=== PATIENT | female | born 1945 | race Caucasian/White ===

== ENCOUNTER 2024-06-16 12:58 | Emergency (ER) | payer OTHER, SELFPAY ==
[2024-06-16 13:01] VITALS: BP 133/87
[2024-06-16 14:24] VITALS: BP 131/61; BMI 35.4
[2024-06-16 15:22] LABS: % Basophils 0.9 % (0-2); % Immature Granulocytes 0.4 % (0-0.5); % Monocytes 11.7 % (1.7-9.3); Absolute Basophils 0.1 10^3/uL (0-0.2); Absolute Eosinophils 0.2 10^3/uL (0-0.7); Absolute Lymphocytes 1.9 10^3/uL (1.2-3.4); Absolute Monocytes 0.9 10^3/uL (0.1-0.6); Absolute Neutrophils 4.9 10^3/uL (1.4-6.5); Hematocrit 36.9 % (37.0-47.0); Hemoglobin 12.9 g/dL (12.0-16.0); Mean Corpuscular Volume 94.4 fL (81.0-99.0); Mean Platelet Volume 10.1 fL (7.4-10.4); Nucleated Red Blood Cells % 0 %; Platelet Count 214 10^3/uL (130-400); Red Blood Cell Count 3.91 10^6/uL (4.20-5.40); Red Cell Dist. Width 12.2 % (11.5-14.5)
--- NOTE | 2024-06-16 15:36 | ED.GENMED ---
History of Present Illness
General
Chief Complaint: DVT/Possible Blood Clot
Time Seen by Provider: 06/16/24 15:03
History of Present Illness
History of Present Illness:
Patient is a 79-year-old woman with history of A-fib on Eliquis, hypertension, hyperlipidemia, insulin-dependent diabetes presented to the emergency department diarrhea and leg swelling. Patient states for the past month she has had countless
episodes of nonbloody diarrhea. She states that is very liquidy. Did travel to [place] but was having diarrhea when she did this. No antibiotics. She does have abdominal pain with her that has been ongoing for the past month. No nausea
or vomiting. No fevers or chills. She has been taking Pepto-Bismol so the stools have been black. She went to her primary care doctor today for this and fecal occult blood testing was negative. She was told to get stool studies done. Also
noticed some leg swelling so she was sent here for DVT rule out. Patient states that her leg does not seem more swollen. It is red from a prior sunburn. She denies any chest pain hemoptysis. Her calves have been tender intermittently if she has
been having severe muscle cramps from all the diarrhea. She does have history of edema requiring compression stockings
Past History
Past History
ED Past Medical History: Arrthythmia (Atrial fib), CVA, HTN, Hypercholesterolemia, IDDM and Other (Parkinson's disease)
ED Past Surgical History: (X 3), Gynecological (D&C X 3), Orthopedic (partial right knee replacement, Spinal fusion), Tonsilectomy (and adnoids) and Other
Social History
Tobacco: Former smoker
Alcohol: Occasional
Personal:
Living: with family
Employment: Retired
Phy Exam
Physical Exam
Physical Exam:
GENERAL: in no acute distress
HEENT: normocephalic, extraocular movements intact, moist oral mucosa
NECK: normal inspection
RESPIRATORY: no respiratory distress, clear to auscultation bilaterally
CARDIOVASCULAR: regular rate and rhythm
ABDOMEN/: soft, non-distended, epigastric and right upper quadrant tenderness no rebound or guarding
EXTREMITIES: non-tender, minimal edema bilaterally with left lower extremity with area of excoriation and some erythema that is not warm or tender
NEUROLOGIC: awake and alert, moves all extremities
SKIN: warm
Course
Orders/Labs/Results
Orders:
Orders
06/16/24 13:07
Periph Venous Lwr Ext Left US [US Periph Venous LOWER Ext LT] Urgent
Comment:
Reason For Exam: swelling and redness
06/16/24 15:04
STOOL [C difficile Antigen & Toxins] Urgent
PATRICIA Source: Feces/Stool
Specimen Description:
Stool Culture Urgent
PATRICIA Source: Feces/Stool
Specimen Description:
06/16/24 15:16
Basic Metabolic Panel Urgent
Complete Blood Count/With Diff Urgent
Direct Bilirubin Urgent
Comment: COMBINE/HEMOLYZED
06/16/24 15:36
CT Abd/pelvis W Iv Cont Urgent
Comment:
Reason For Exam: abdominal pain diarrhea
Abnormal Lab Results
06/16/24
15:16
RBC 3.91 L 10^6/uL
(4.20-5.40)
Hct 36.9 L %
(37.0-47.0)
MCH 33.0 H pg
(27.0-31.0)
Absolute Monos (auto) 0.9 H 10^3/uL
(0.1-0.6)
Monocytes % 11.7 H %
(1.7-9.3)
BUN 28 H mg/dl
(7-17)
Glucose 133 H mg/dl
(70-99)
06/16/24 15:16
06/16/24 15:16
Vital Signs
Initial and Last Documented VS:
Initial Vital Signs
Temp Pulse Resp BP Pulse Ox
97.6 F 72 20 133/87 96
06/16/24 13:01 06/16/24 13:01 06/16/24 13:01 06/16/24 13:01 06/16/24 13:01
Last Documented Vital Signs
Temp Pulse Resp BP Pulse Ox
97.6 F 63 16 134/65 100
06/16/24 13:01 06/16/24 16:57 06/16/24 16:57 06/16/24 16:57 06/16/24 16:57
MDM/Problems Addressed
Differential Diagnosis Includes:
Patient is a 79-year-old woman presenting to the emergency department diarrhea for the past month and leg swelling sent by her PCP for further evaluation. Vitals here are unremarkable and exam does show abdominal tenderness in the epigastric region
and right upper quadrant with an area of erythema to the left calf. Differential consists of viral versus bacterial illness versus gallbladder etiology versus liver etiology. Could be the onset of IBD though less likely as no family history. Will
check blood work CT scan and stool sample. Will check DVTs ultrasound
*Critical Care Note
Total Time (30-74mins, 75-104mins- exclusive of procedures): Not Applicable
Update Note
Update Note:
DVT study negative. Blood work unremarkable. CT scan without signs of colitis or biliary pathology. Patient was unable to give a stool sample. After shared decision making we will discharge patient home with PCP follow-up.
ED Attending Note
-
Portions of this chart may have been created with voice recognition software.� Occasional wrong word or��sound alike� substitutions may have occurred due to the inherent limitations of voice recognition software.
Discharge Plan
Departure
Patient Disposition: Home (Routine Discharge)
Date of Disposition: 06/16/24
Time of Disposition: 17:44
Patient with high blood pressure during this ER visit?: No
Discharge Problem:
Diarrhea
Instructions: Ambriz's Cyst (DC)
Prescriptions:
No Action
carbidopa-levodopa 1 EACH tablet extended release
1 ea PO DAILY
pramipexole [Mirapex] 0.5 MG tablet
0.5 mg PO TID
gabapentin 300 MG capsule
600 mg PO TID
carbidopa-levodopa 1 EACH tablet
1 ea PO TID
glipizide 5 MG tablet
5 mg PO . DIRECTED
cholecalciferol (vitamin D3) [Vitamin D3] 1,000 UNIT capsule
1,000 unit PO DAILY
rosuvastatin 10 MG tablet
10 mg PO DAILY
rasagiline 1 MG tablet
1 mg PO DAILY
insulin glargine [Lantus Solostar U-100 Insulin] 300 UNITS/3 ML insulin pen
60 units SC . DIRECTED
Eliquis 5 MG tablet
5 mg PO BID
Coenzyme Q-10
100 mg PO DAILY
lisinopril 20 MG tablet
40 mg PO DAILY 0RF
dofetilide 250 MCG capsule
250 mcg PO BID@1000,2200 Qty: 60 3RF
donepezil 10 mg Tablet
10 mg PO HS
irbesartan 150 mg Tablet
150 mg PO DAILY
carbidopa-levodopa 25-100 mg Tablet
1 tab PO TID
Trulicity 3 mg/0.5 mL Pen Injector
3 mg SC QWEEK
amlodipine 5 MG tablet
10 mg PO DAILY
Referrals:
Angela Brian MD [Family Provider] -
Activity Restrictions/Additional Instructions:
You were seen in the Emergency Department today for diarrhea and leg swelling. While you were here we performed blood work, which was reassuring.
We would like for you to follow up with your primary care physician for further evaluation. If you experience fever, worsening of your symptoms, or develop any other new or concerning symptoms, please return to the Emergency Department immediately.
Please see the attached sheet for additional information.
Interventions
Interventions:
*Risk Screen - Suicide Last Done: 06/16/24 14:24
*General Assessment Last Done: 06/16/24 14:24
*Neglect/Abuse Screening Last Done: 06/16/24 14:24
*ED COVID-19 Vaccine History Last Done: 06/16/24 14:24
ED- Cardiac Assessment Last Done: 06/16/24 13:48
ED- Pulmonary Assessment Last Done: 06/16/24 13:48
ED-Peripheral Vascular Assessment Last Done: 06/16/24 13:48
ED-Skin Assessment Last Done: 06/16/24 14:27
Discharge Date and Time
Print Language: TUVALUAN
[2024-06-16 15:42] LABS: Blood Urea Nitrogen 28 mg/dl (7-17); Calcium 9.3 mg/dl (8.4-10.2); Carbon Dioxide 24 mmol/L (22-30); Chloride 105 mmol/L (98-107); Direct Bilirubin 0.3 mg/dl (0.0-0.4); Estimated Creatinine Clearance 53 ml/min; Glucose 133 mg/dl (70-99); Sodium 139 mmol/L (135-145)
[2024-06-16 16:57] VITALS: BP 134/65
[2024-06-16 17:51] VITALS: BP 140/67
== END 2024-06-16 18:06 | disposition home or self-care (01) ==
LOC: EMR 12:58
PROVIDERS: EMERGENCY PHYSICIAN Student in an Organized Health Care Education/Training Program; FAMILY PHYSICIAN Internal Medicine
DX: R19.7 Diarrhea, unspecified (principal); R22.42 Localized swelling, mass and lump, left lower limb; I48.91 Unspecified atrial fibrillation; I10 Essential (primary) hypertension; E78.00 Pure hypercholesterolemia, unspecified; E11.9 Type 2 diabetes mellitus without complications; G20.A1 Parkinson's disease without dyskinesia, without mention of fluctuations; I25.10 Atherosclerotic heart disease of native coronary artery without angina pectoris; Z79.01 Long term (current) use of anticoagulants; Z79.4 Long term (current) use of insulin; Z86.73 Personal history of transient ischemic attack (TIA), and cerebral infarction without residual deficits; Z87.891 Personal history of nicotine dependence; Z96.651 Presence of right artificial knee joint; Z98.1 Arthrodesis status
CPT/HCPCS: 99284; 74177; 80048; 82248; 85025; 93971; Q9967

== ENCOUNTER 2024-12-07 12:15 | Inpatient (IN) | payer OTHER, SELFPAY ==
[2024-12-05] VITALS (13 sets, daily range): BP systolic 116–188; BP diastolic 46–88; BMI 34.2
[2024-12-05 06:52] LABS: % Basophils 0.9 % (0-2); % Eosinophils 0.7 % (0-6); % Immature Granulocytes 0.6 % (0-0.5); % Lymphocytes 17.6 % (20.5-51.1); % Monocytes 19.5 % (1.7-9.3); % Neutrophils 60.7 % (42.2-75.2); Absolute Basophils 0.1 10^3/uL (0-0.2); Absolute Monocytes 1.1 10^3/uL (0.1-0.6); Absolute Neutrophils 3.3 10^3/uL (1.4-6.5); Hematocrit 35.1 % (37.0-47.0); Hemoglobin 11.9 g/dL (12.0-16.0); Mean Corp Hgb Conc. 33.9 g/dL (33.0-37.0); Mean Corpuscular Hgb 32.2 pg (27.0-31.0); Mean Corpuscular Volume 94.9 fL (81.0-99.0); Nucleated Red Blood Cells % 0 %; Platelet Count 243 10^3/uL (130-400); Red Cell Dist. Width 12.2 % (11.5-14.5); White Blood Cell Count 5.4 10^3/uL (4.8-10.8)
[2024-12-05 07:04] LABS: ALT (SGPT) 21 U/L (0-35); AST (SGOT) 29 U/L (14-36); Albumin 3.4 g/dl (3.5-5.0); Alkaline Phosphatase 76 U/L (38-126); Blood Urea Nitrogen 20 mg/dl (7-17); Carbon Dioxide 25 mmol/L (22-30); Chloride 103 mmol/L (98-107); Glucose 110 mg/dl (70-99); Potassium 4.6 mmol/L (3.5-5.1); Sodium 134 mmol/L (135-145); Total Bilirubin 0.7 mg/dl (0.2-1.3); Total Protein 6.1 g/dl (6.3-8.2); eGFR > 60.00
[2024-12-05 07:20] LABS: COVID-19 Antigen Negative (Negative)
[2024-12-05 07:24] LABS: Troponin I < 0.012 ng/ml
--- NOTE | 2024-12-05 07:38 | ED.GENMED ---
History of Present Illness
General
Chief Complaint: Weakness
Source: patient
Exam Limitations: none
Time Seen by Provider: 12/05/24 07:27
History of Present Illness
History of Present Illness:
79-year-old female insulin-dependent diabetic with history of Parkinson's disease and hypertension presents complaining of generalized weakness worsening over the past 2 days but preceded by a fall she sustained injuring her right elbow. She was
seen at an urgent care and was started on antibiotic for presumed cellulitis of the elbow. She has been on doxycycline since November 30. They note no significant improvements of her overall status. Blood sugars at home have been in the 300-400
range. Patient notes a cough and slight chest congestion as well as diffuse myalgias and back pain. No urinary symptoms. No vomiting. No other complaints at this time. She also has a history of A-fib on Eliquis
Past History
Past History
ED Past Medical History: Arrthythmia (Atrial fib), CVA, HTN, Hypercholesterolemia, IDDM and Other (Parkinson's disease)
ED Past Surgical History: (X 3), Gynecological (D&C X 3), Orthopedic (partial right knee replacement, Spinal fusion), Tonsilectomy (and adnoids) and Other
Social History
Tobacco: Former smoker
Alcohol: Occasional
Personal:
Living: with family
Employment: Retired
Phy Exam
Physical Exam
Physical Exam:
General: Well-appearing female no acute respiratory distress
HEENT: Normocephalic mucosa dry neck is supple
Heart: Regular rate and rhythm
Lungs: Clear no wheeze
Abdomen is soft nontender nondistended
Skin: Erythema and warmth noted around the right elbow. No fluctuance or drainage. This is slightly tender. She has good range of motion of the elbow
Extremities: No edema in the legs
Neurologic exam: Tremor noted with blunted affect but alert and oriented
Course
Orders/Labs/Results
Orders:
Orders
12/05/24 06:25
Electrocardiogram (*1) Urgent
Reason for Study: Fatigue / Weakness
12/05/24 06:26
EKG- Treatment ONCE
12/05/24 06:39
COVID-19 Antigen Urgent
Source: Nasal Swab
Complete Blood Count/With Diff Urgent
Comprehensive Metabolic Panel Urgent
Troponin I Urgent
Influenza A+B Rapid Molecular Urgent
PATRICIA Source: Nasal Swab
Specimen Description:
12/05/24 07:37
0.9% Sodium Chloride 1000 ml [Nss] 1,000 ml IV BOLUS
CR Chest - 2 Views Urgent
Comment:
Reason For Exam: cough, weakness
CR Elbow - Right Min 3 Views Urgent
Comment:
Reason For Exam: infection
12/05/24 07:38
Acetaminophen [Tylenol] 650 mg PO NOW STA
Abnormal Lab Results
12/05/24
06:39
RBC 3.70 L 10^6/uL
(4.20-5.40)
Hgb 11.9 L g/dL
(12.0-16.0)
Hct 35.1 L %
(37.0-47.0)
MCH 32.2 H pg
(27.0-31.0)
Absolute Lymphs (auto) 1.0 L 10^3/uL
(1.2-3.4)
Absolute Monos (auto) 1.1 H 10^3/uL
(0.1-0.6)
Immature Gran % 0.6 H %
(0-0.5)
Lymphocytes % 17.6 L %
(20.5-51.1)
Monocytes % 19.5 H %
(1.7-9.3)
Sodium 134 L mmol/L
(135-145)
BUN 20 H mg/dl
(7-17)
Glucose 110 H mg/dl
(70-99)
Total Protein 6.1 L g/dl
(6.3-8.2)
Albumin 3.4 L g/dl
(3.5-5.0)
12/05/24 06:39
12/05/24 06:39
Vital Signs
Initial and Last Documented VS:
Initial Vital Signs
BP
133/78
12/05/24 06:19
Last Documented Vital Signs
Temp Pulse Resp BP Pulse Ox
98.2 F 60 23 128/46 91
12/05/24 06:27 12/05/24 07:15 12/05/24 07:15 12/05/24 07:00 12/05/24 07:15
MDM/Problems Addressed
Differential Diagnosis Includes:
Patient with generalized weakness unable to walk at home has been falling. Recent cellulitis of right elbow currently on doxycycline now with more myalgias and cough. Consider worsening infection of elbow versus viral illness such as COVID or flu
versus dehydration UTI or pneumonia.
Chest x-ray pending COVID and flu ordered patient tested positive for influenza A. Will treat myalgias with Tylenol and fluids.
*Critical Care Note
Total Time (30-74mins, 75-104mins- exclusive of procedures): Not Applicable
Update Note
Update Note:
Labs reviewed. Flu positive. Chest x-ray visualized without obvious acute finding x-ray of the elbow negative. Patient is weak and insulin-dependent diabetic with history of Parkinson's unable to walk. She is with influenza as well as cellulitis
of the right elbow. Ancef ordered for cellulitis will admit to hospital
ED Attending Note
-
Portions of this chart may have been created with voice recognition software.� Occasional wrong word or��sound alike� substitutions may have occurred due to the inherent limitations of voice recognition software.
Discharge Plan
Departure
Patient Disposition: Admit
Date of Disposition: 12/05/24
Time of Disposition: 08:54
Presentation/result/management discussed w/ accepting MD/DO: Hospitalist
Discharge Problem:
Weakness, Cellulitis, Influenza A
Prescriptions:
No Action
gabapentin 300 MG capsule
600 mg PO TID
cholecalciferol (vitamin D3) [Vitamin D3] 1,000 UNIT capsule
1,000 unit PO DAILY
rosuvastatin 10 MG tablet
10 mg PO DAILY
rasagiline 1 MG tablet
1 mg PO DAILY
insulin glargine [Lantus Solostar U-100 Insulin] 300 UNITS/3 ML insulin pen
65 units SC . DIRECTED
Eliquis 5 MG tablet
5 mg PO BID
Coenzyme Q-10
100 mg PO DAILY
dofetilide 250 MCG capsule
250 mcg PO BID@1000,2200 Qty: 60 3RF
donepezil 10 mg Tablet
10 mg PO HS
irbesartan 150 mg Tablet
150 mg PO DAILY
amlodipine 5 MG tablet
10 mg PO DAILY
doxycycline hyclate 100 mg Capsule
100 mg PO . DIRECTED
clonazepam 0.5 mg Tablet
0.5 mg PO HS
carbidopa-levodopa 50-200 mg Tablet Extended Release
1 tab PO DAILY
duloxetine 30 mg Capsule,Delayed Release(Dr/Ec)
30 mg PO DAILY
Referrals:
Angela Brian MD [Family Provider] -
Interventions
Interventions:
*Risk Screen - Suicide Last Done: 12/05/24 06:27
*General Assessment Last Done: 12/05/24 06:27
*Neglect/Abuse Screening Last Done: 12/05/24 06:27
ED- Fall Risk Assessment Last Done: 12/05/24 06:27
*ED COVID-19 Vaccine History Last Done: 12/05/24 06:27
ED- Cardiac Assessment Last Done: 12/05/24 07:30
ED- Neurological Assessment Last Done: 12/05/24 07:30
ED- Pulmonary Assessment Last Done: 12/05/24 07:30
Discharge Date and Time
Print Language: LITHUANIAN
[2024-12-05] MEDS: TYLENOL 650 MG PO (07:44)
[2024-12-05] MEDS: NSS 1000 IV (07:44)
[2024-12-05] MEDS: ANCEF 10 IV (08:59)
--- NOTE | 2024-12-05 09:18 | PHANOTE ---
Addendum entered and electronically signed by Flavia Sepulveda [facility] 12/05/24 10:48:
Med Rec Note cont.
home phone number for spouse not connected; Patient's cell phone not on. Patient cannot recall her spouse's cell phone number
Original Note:
Med Rec Note:
Pt unsure of medications, pt's takes care of medication. left with home med list. Compiled from Dr Fay and ARACELI. In [facility] Sinemet is listed as twice daily, while in Dr Fay is Daily.
--- NOTE | 2024-12-05 16:37 | HPS.HSE ---
Family Physician
-
Family Physician: Angela Brian
Chief Complaint
-
right elbow pain
History of Present Illness
79-year-old female past medical history of atrial fibrillation on Eliquis diabetes, Parkinson disease, hypertension presenting with fall 2 weeks ago injuring her right elbow. For the past week the elbow has been painful and red and swollen. She
went to urgent care and was started on doxycycline for a week ago. She notes no improvement although the pain has gotten somewhat better.
She has also been having cough and runny nose with postnasal drip for the past week. Denies sore throat or fever or shortness of breath. Denies vomiting or diarrhea. Denies chest pain.
She notes that her blood sugars recently have been in the 130s. She denies any low blood sugars.
Denies smoking or alcohol use.
Medical History
Past Medical History
Past Medical History: Reports Other (atrial fibrillation on Eliquis diabetes, Parkinson disease, hypertension)
Past Surgical History: Reports Other ( (X 3), Gynecological (D&C X 3), Orthopedic (partial right knee replacement, Spinal fusion), Tonsilectomy (and adnoids) and Other)
Social History
Tobacco: Non-smoker
Alcohol: None
Drug: None
Family History
Family History: Not pertinent
Allergies / Home Medications
Allergies reflects when Allergies were last updated in [employer].
Home Medications with original date entered in [employer]
Allergy/Medication List:
Allergies
Allergy/AdvReac Type Severity Reaction Status Date / Time
adhesive tape Allergy Rash Verified 12/05/24 06:25
Home Medications
apixaban 5 mg tablet (Eliquis) 5 mg PO BID Blood Clot Prevention/Tx 03/04/18
coenzyme Q10 100 mg capsule (Co Q-10) 100 mg PO DAILY Supplement ##0 03/04/18
insulin glargine 100 unit/mL (3 mL) subcutaneous pen (Lantus Solostar U-100 Insulin) 66 units SC DAILY Diabetes 03/04/18
rasagiline 1 mg tablet 1 mg PO DAILY Neurological Condition 03/04/18
rosuvastatin 10 mg tablet 10 mg PO DAILY High Cholesterol 03/04/18
amlodipine 5 mg tablet 10 mg PO DAILY Blood Pressure 06/23/23
donepezil 10 mg tablet 10 mg PO HS Neurological Condition 06/23/23
irbesartan 150 mg tablet 150 mg PO DAILY Blood Pressure 06/23/23
carbidopa ER 50 mg-levodopa 200 mg tablet,extended release 1 tab PO DAILY Parkinson's disease 12/05/24
cholecalciferol (vitamin D3) 25 mcg (1,000 unit) tablet 25 mcg PO DAILY Supplement 12/05/24
clonazepam 0.5 mg tablet 0.5 mg PO HS Mental Health/Anxiety 12/05/24
dofetilide 250 mcg capsule 250 mcg PO BID@1000,2200 Arrhythmia 12/05/24
doxycycline hyclate 100 mg capsule 100 mg PO BID Infection 12/05/24
dulaglutide 3 mg/0.5 mL subcutaneous pen injector (Trulicity) 3 mg SC WEEKLY Diabetes 12/05/24
duloxetine 30 mg capsule,delayed release 30 mg PO DAILY Mental Health/Anxiety 12/05/24
gabapentin 600 mg tablet 600 mg PO TID Pain 12/05/24
Review of Systems
-
History Source: Patient
A 12 point ROS was completed and negative except as noted: Yes
Constitutional: Reports No Symptoms
EENT: Reports No Symptoms
Respiratory: Reports No Symptoms
Cardiac: Reports No Symptoms
Abdomen/GI: Reports No Symptoms
: Reports No Symptoms
Musculoskeletal: Reports No Symptoms
Skin: Reports See HPI
Neurological: Reports No Symptoms
Endocrine: Reports No Symptoms
Hematologic/Lymphatic: Reports No Symptoms
Psych: Reports No Symptoms
Physical Exam
Vital Signs
Vital Signs
Temp Pulse Resp BP Pulse Ox
98.2 F 66 25 139/71 93
12/05/24 06:27 12/05/24 16:00 12/05/24 16:00 12/05/24 15:00 12/05/24 12:00
Physical Exam
General: Well Developed, Well Nourished and No Apparent Distress
HEENT: NormoCephalic, Moist mucous membranes and Atraumatic
Respiratory: Clear
Cardiac: S1/S2 and Regular Rhythm; No Murmur or Rub
GI: Soft, Non Tender, Non Distended and Normal Bowel Sounds; No Organomegaly
Rectal: Deferred by Provider
Musculoskeletal: No Clubbing, No Cyanosis and No Edema
Skin: Other (right elbow swelling and redness ); No Rash
Neuro: Nonfocal/grossly intact
Laboratory Results
-
12/05/24 06:39
12/05/24 06:39
Laboratory Results
Total Bilirubin 0.7 mg/dl (0.2-1.3) 12/05/24 06:39
AST 29 U/L (14-36) 12/05/24 06:39
ALT 21 U/L (0-35) 12/05/24 06:39
Alkaline Phosphatase 76 U/L (38-126) 12/05/24 06:39
Troponin I < 0.012 ng/ml 12/05/24 06:39
Data Reviewed
-
Lab Data: Labs Reviewed by me
Old Records: Reviewed
Impression/Plan
-
IMPRESSION:
PLAN:
# Cellulitis of right elbow
-Elbow x-ray shows no abnormality or joint effusion
-Not improving on 1 week of doxycycline
-Cefazolin
# Resolving Influenza A infection
-Chest x-ray shows clear lungs
-Symptoms for a week
Type 2 diabetes
-Continue Lantus 66 units
-Insulin sliding scale
Atrial fibrillation
-Continue dofetilide
-Continue Eliquis
Essential hypertension
-Continue amlodipine, irbesartan
Parkinson's disease
-Continue carbidopa-levodopa, rasagiline
Anxiety/depression
-Continue clonazepam, duloxetine
Dementia
-Continue donepezil
Hyperlipidemia
-Continue statin
Full code
DVT prophylaxis�Eliquis
Regular diet
[2024-12-05] MEDS: ANCEF 5 IV (18:22)
[2024-12-05] MEDS: SINEMET CR 50/200 (EXTENDED RELEASE) 1 TABLET PO (18:32)
[2024-12-05] MEDS: ELIQUIS 5 MG PO (22:05)
[2024-12-05] MEDS: DESENEX/MITRAZOL/ZEASORB 1 APPLIC TOPICAL (22:05)
[2024-12-05 22:17] LABS: Glucose - Point of Care 219 mg/dl (70-99)
[2024-12-05] MEDS: TIKOSYN 250 MCG PO (22:24)
[2024-12-05] MEDS: NEURONTIN 600 MG PO (22:24)
[2024-12-05] MEDS: ARICEPT 10 MG PO (22:24)
[2024-12-05] MEDS: KLONOPIN 0.5 MG PO (22:24)
[2024-12-06] VITALS (7 sets, daily range): BP systolic 102–150; BP diastolic 51–91; BMI 33.5
[2024-12-06] MEDS: ANCEF 5 IV ×2 (01:02→10:17)
[2024-12-06] MEDS: FLUSH (NSS) 1 FLUSH IV ×4 (01:03→16:01)
[2024-12-06 06:57] LABS: % Basophils 0.7 % (0-2); % Eosinophils 0.3 % (0-6); % Immature Granulocytes 0.3 % (0-0.5); % Lymphocytes 14.2 % (20.5-51.1); % Monocytes 17.2 % (1.7-9.3); % Neutrophils 67.3 % (42.2-75.2); Absolute Lymphocytes 0.9 10^3/uL (1.2-3.4); Hematocrit 35.5 % (37.0-47.0); Hemoglobin 12.4 g/dL (12.0-16.0); Mean Corp Hgb Conc. 34.9 g/dL (33.0-37.0); Mean Corpuscular Hgb 31.7 pg (27.0-31.0); Mean Corpuscular Volume 90.8 fL (81.0-99.0); Mean Platelet Volume 10.3 fL (7.4-10.4); Nucleated Red Blood Cells % 0 %; Platelet Count 215 10^3/uL (130-400); Red Blood Cell Count 3.91 10^6/uL (4.20-5.40); Red Cell Dist. Width 12.1 % (11.5-14.5)
[2024-12-06 07:25] LABS: ALT (SGPT) 23 U/L (0-35); AST (SGOT) 25 U/L (14-36); Albumin 3.6 g/dl (3.5-5.0); Alkaline Phosphatase 83 U/L (38-126); Blood Urea Nitrogen 13 mg/dl (7-17); Calcium 8.4 mg/dl (8.4-10.2); Carbon Dioxide 19 mmol/L (22-30); Chloride 98 mmol/L (98-107); Estimated Creatinine Clearance 75 ml/min; Glucose 200 mg/dl (70-99); Potassium 4.6 mmol/L (3.5-5.1); Sodium 127 mmol/L (135-145); Total Protein 6.3 g/dl (6.3-8.2); eGFR > 60.00
[2024-12-06 08:21] LABS: Glucose - Point of Care 220 mg/dl (70-99)
[2024-12-06] MEDS: RASAGILINE MESYLATE 1 MG PO (08:53)
[2024-12-06] MEDS: CYMBALTA DELAYED RELEASE 30 MG PO (08:53)
[2024-12-06] MEDS: NEURONTIN 600 MG PO ×3 (08:53→20:31)
[2024-12-06] MEDS: AVAPRO 150 MG PO (08:53)
[2024-12-06 08:54] LABS: Blood Urea Nitrogen 13 mg/dl (7-17); Calcium 8.5 mg/dl (8.4-10.2); Carbon Dioxide 22 mmol/L (22-30); Chloride 95 mmol/L (98-107); Estimated Creatinine Clearance 75 ml/min; Glucose 210 mg/dl (70-99); Potassium 4.4 mmol/L (3.5-5.1); Sodium 129 mmol/L (135-145); eGFR > 60.00
[2024-12-06] MEDS: CRESTOR 10 MG PO (08:54)
[2024-12-06] MEDS: SINEMET CR 50/200 (EXTENDED RELEASE) 1 TABLET PO (08:54)
[2024-12-06] MEDS: NORVASC 10 MG PO (08:54)
[2024-12-06] MEDS: ELIQUIS 5 MG PO ×2 (08:54→20:31)
[2024-12-06] MEDS: LANTUS 0.66 UNITS SC (08:54)
[2024-12-06] MEDS: VITAMIN D3 (cholecalciferol) 25 MCG PO (08:54)
[2024-12-06] MEDS: DESENEX/MITRAZOL/ZEASORB 1 APPLIC TOPICAL ×2 (08:55→20:31)
[2024-12-06] MEDS: NOVOLOG FLEXPEN-LOW RESISTANCE 2 UNITS SC (10:17)
[2024-12-06 10:31] LABS: Glycohemoglobin (HgbA1c) 8.8 % (4.0-5.6)
[2024-12-06] MEDS: TIKOSYN 250 MCG PO ×2 (10:37→20:31)
[2024-12-06] MEDS: TAMIFLU 75 MG PO ×2 (11:23→20:31)
--- NOTE | 2024-12-06 12:04 | CON.ID ---
Consultation
-
Date/Time Consultation Requested: 12/06/2024 0759
Date/Time Consultation Performed: 12/06/2024 1159
Requesting Provider: Dr. Bellamy
Performing Provider: Dr. Phelps
Reason for Consultation: Cellulitis; influenza A
Chief Complaint / Past History
History of Present Illness
Lisa Cho is an 79-year-old female being evaluated the request of Dr. Bellamy in regards to right arm cellulitis and influenza A infection. History was obtained from chart review, along with patient interview.
The patient reportedly fell several days ago with resultant injury to her right elbow area. She was seen in an urgent care and prescribed doxycycline. Over the past several days she has had increasing myalgias, along with cough and congestion.
Blood sugars are also noted to have been increased. Ultimately she presented to the emergency room as she is not feeling improved, and testing revealed that she was positive for influenza A. She has been started on oseltamavir, and prior
doxycycline has been transition to cefazolin. Infectious Diseases is now asked to comment upon further antibiotic therapy.
Patient reports that she has felt well for approximately the past 2 months, but cannot provide more significant history. She notes some discomfort in the right elbow area. She is not sure about degree of erythema, or any recent improvement.
Past History
Additional Past Medical History:
A-fib (on Eliquis)
Hx CVA
HTN
Dyslipidemia
DM 2 (uncontrolled; A1c = 8.8)
Parkinson's disease
Additional Past Surgical History:
x 3
D&C x 3
Partial right knee replacement
Spinal fusion
Allergy History:
adhesive tape Allergy (Verified 12/05/24 06:25)
Rash
Medications Reviewed: Yes
Current Antibiotics:
Cefazolin 1 g IV every 8 hours
Oseltamavir
Social History
Tobacco: Former Smoker
Alcohol: Occasional
Drug: None
Personal:
Living: With Family
Employment: Retired
Family History
Family History: Not Pertinent
Review of Systems
Vital Signs
Temp Pulse Resp BP Pulse Ox
98.4 F 71 20 138/61 95
12/06/24 11:31 12/06/24 11:31 12/06/24 11:31 12/06/24 11:31 12/06/24 11:31
Physical Exam
Physical Exam
Constitutional: Comfortable, Chronically Ill, Non-toxic and Obese
Head: Normocephalic
Eyes: Pupils Equal, Pupils Round, No Conjunctival Hemorrhage and Sclera Anicteric
Oral: No Thrush and No Ulcers
Cardiovascular: Regular Rate and S1/S2; Negative S3/S4
Pulmonary: Coarse and Non Labored
Gastrointestinal: Soft, Non Tender, Non Distended and Normal Bowel Sounds
Extremities: Edema (Right upper extremity) and Erythema (Right upper extremity, with redness most focal at the olecranon bursa, with mild spreading out from there.)
Skin: Negative Rash or Jaundice
Neurological: Awake, Alert and Other (Mild tremor.)
Psychological: Calm
.
Lab / Diagnostic Study Results
12/06/24 06:21
12/06/24 08:17
Abs Immat Gran (auto) 0.0 10^3/uL (0-0.05) 12/06/24 06:21
Absolute Neuts (auto) 4.0 10^3/uL (1.4-6.5) 12/06/24 06:21
Absolute Lymphs (auto) 0.9 10^3/uL (1.2-3.4) L 12/06/24 06:21
Absolute Monos (auto) 1.0 10^3/uL (0.1-0.6) H 12/06/24 06:21
Absolute Basos (auto) 0.0 10^3/uL (0-0.2) 12/06/24 06:21
Immature Gran % 0.3 % (0-0.5) 12/06/24 06:21
Neutrophils % 67.3 % (42.2-75.2) 12/06/24 06:21
Lymphocytes % 14.2 % (20.5-51.1) L 12/06/24 06:21
Monocytes % 17.2 % (1.7-9.3) H 12/06/24 06:21
Eosinophils % 0.3 % (0-6) 12/06/24 06:21
Basophils % 0.7 % (0-2) 12/06/24 06:21
Microbiology Results
Micro:
12/05/24 06:39 Influenza Types A & B (ANNIE) - Final
Nasal Swab Influenza A Positive, NAAT
Imaging:
12/05/2024 X-ray right elbow: Mottled appearance of the subcutaneous soft tissues diffusely suggesting diffuse subcutaneous edema. No evidence for fracture or dislocation. No evidence for significant joint effusion.
Assessment / Plan
Influenza A infection
Right arm cellulitis
Right olecranon bursitis
Upper extremity edema
A-fib (on Eliquis)
Hx CVA
HTN
Dyslipidemia
DM 2 (uncontrolled; A1c = 8.8)
Parkinson's disease
Recommendations:
Continue with oseltamavir to complete a 5-day course.
Continue cefazolin; increase to 2 g IV every 8 hours.
Aleksander wrap to right upper extremity to decrease edema. Right upper extremity elevation.
Monitor for clinical improvement.
Follow white count and temperature curve.
Further recommendations as additional data is returned.
--- NOTE | 2024-12-06 12:48 | W.PN.HOSP.TC ---
Today's Communication/Plan
-
Assessment / Plan
Assessment / Plan
NAD
Scleral Anicteric
MMM
No JVD
CTABL
RRR, S1/S2
Soft, NT, ND, BS+
Warm, Dry
AAOx3
Calm
Flu A+ will discontinue Tamiflu that I initiated this morning. Symptoms have been ongoing for a week
Cellulitis right elbow, failed outpatient antibiotics as she was on the doxycycline x 1 week. Started on cefazolin. No additional blood cultures were obtained
Will consult infectious diseases
Type 2 diabetes
-Continue Lantus 66 units
-Insulin sliding scale
Atrial fibrillation
-Continue dofetilide and eliquis
Essential hypertension
-Continue amlodipine, irbesartan
Parkinson's disease
-Continue carbidopa-levodopa, rasagiline
Anxiety/depression
-Continue clonazepam, duloxetine
Dementia
-Continue donepezil
Hyperlipidemia
-Continue statin
Anticipated Discharge: > 48 hours
Subjective/Interval History
-
Date of Service: December 06, 2024
Seen and examined. No new complaints. No acute overnight events
Objective Data
-
Labs:
Laboratory Results
12/06/24 12/06/24
06:21 08:17
WBC 6.0
Hgb 12.4
Hct 35.5 L
Plt Count 215
Sodium 127 L 129 L
Potassium 4.6 4.4
Chloride 98 95 L
Carbon Dioxide 19 L 22
BUN 13 13
Creatinine 0.7 0.7
Glucose 200 H 210 H
Calcium 8.4 8.5
Total Bilirubin 1.0
AST 25
ALT 23
Alkaline Phosphatase 83
Vital Signs:
Vital Signs
Temp Pulse Resp BP Pulse Ox
98.4 F 71 20 138/61 95
12/06/24 11:31 12/06/24 11:31 12/06/24 11:31 12/06/24 11:31 12/06/24 11:31
[2024-12-06 12:52] LABS: Glucose - Point of Care 176 mg/dl (70-99)
[2024-12-06] MEDS: NOVOLOG FLEXPEN-LOW RESISTANCE 1 UNITS SC (13:08)
[2024-12-06] MEDS: ANCEF 10 IV (16:01)
--- NOTE | 2024-12-06 16:20 | PTCARENOTE ---
Pt drowsy but arousable; oriented to self/birthdate/years; occ to place. Confused conversation. SHAIKH slowly/stiffly; (+) arm tremors. VSS. Telemetry:NSR. On room air- pulse ox 96%, no SOB noted. Abd obese,soft, marina PO/ incont formed BM. Incont
large amts urine. Resting in bed at present; family at bedside. Will continue to monitor.
[2024-12-06 16:36] LABS: Glucose - Point of Care 257 mg/dl (70-99)
[2024-12-06] MEDS: NOVOLOG FLEXPEN-LOW RESISTANCE 3 UNITS SC (18:20)
[2024-12-06] MEDS: ARICEPT 10 MG PO (20:31)
[2024-12-06] MEDS: KLONOPIN PO (20:45)
[2024-12-06 21:31] LABS: Glucose - Point of Care 230 mg/dl (70-99)
[2024-12-07] VITALS (7 sets, daily range): BP systolic 120–178; BP diastolic 54–68; PULSE 55; O2SAT 94
[2024-12-07] MEDS: ANCEF 10 IV ×3 (01:27→17:20)
[2024-12-07 06:51] LABS: Hematocrit 34.4 % (37.0-47.0); Hemoglobin 11.9 g/dL (12.0-16.0); Mean Corp Hgb Conc. 34.6 g/dL (33.0-37.0); Mean Corpuscular Hgb 31.9 pg (27.0-31.0); Mean Corpuscular Volume 92.2 fL (81.0-99.0); Platelet Count 235 10^3/uL (130-400); Red Blood Cell Count 3.73 10^6/uL (4.20-5.40); Red Cell Dist. Width 12.1 % (11.5-14.5)
[2024-12-07 07:16] LABS: Blood Urea Nitrogen 17 mg/dl (7-17); Calcium 8.6 mg/dl (8.4-10.2); Carbon Dioxide 22 mmol/L (22-30); Chloride 101 mmol/L (98-107); Estimated Creatinine Clearance 66 ml/min; Glucose 170 mg/dl (70-99); Potassium 4.4 mmol/L (3.5-5.1); Sodium 133 mmol/L (135-145); eGFR > 60.00
[2024-12-07 07:25] LABS: Glucose - Point of Care 162 mg/dl (70-99)
--- NOTE | 2024-12-07 09:20 | EEG.RPT ---
Electroencephalogram Report
Recording
Date of EE12/07/24
Type of EEG: Routine
Length of EEG recordin mins
Done with Video Recording: Yes
Patient Status: Inpatient
Recording Conditions: Awake
Hyperventilation Performed: No
Photic Stimulation Performed: Yes
Report
History: 79 year old woman with dementia and Parkinson's admitted for flu and cellulitis, evaluated for altered mental status
Background: continuous generalized polymorphic theta, symmetric and reactive
Sleep: none
Focal/rhythmic/epileptiform: none
Seizures: none
Impression: continuous generalized slowing
Clinical Correlation: mild generalized cerebral activity
[2024-12-07] MEDS: NOVOLOG FLEXPEN-LOW RESISTANCE 1 UNITS SC ×2 (10:09→13:09)
[2024-12-07] MEDS: FLUSH (NSS) 2 FLUSH IV ×2 (10:10→17:24)
[2024-12-07] MEDS: TIKOSYN 250 MCG PO ×2 (10:10→20:23)
[2024-12-07] MEDS: NEURONTIN 600 MG PO ×3 (10:10→20:23)
[2024-12-07] MEDS: RASAGILINE MESYLATE 1 MG PO (10:11)
[2024-12-07] MEDS: AVAPRO 150 MG PO (10:11)
[2024-12-07] MEDS: VITAMIN D3 (cholecalciferol) 25 MCG PO (10:11)
[2024-12-07] MEDS: ELIQUIS 5 MG PO ×2 (10:11→20:23)
[2024-12-07] MEDS: CRESTOR 10 MG PO (10:11)
[2024-12-07] MEDS: CYMBALTA DELAYED RELEASE 30 MG PO (10:11)
[2024-12-07] MEDS: SINEMET CR 50/200 (EXTENDED RELEASE) 1 TABLET PO (10:11)
[2024-12-07] MEDS: NORVASC 10 MG PO (10:12)
[2024-12-07] MEDS: LANTUS 0.66 UNITS SC (10:12)
[2024-12-07] MEDS: TAMIFLU 75 MG PO ×2 (10:12→20:23)
[2024-12-07] MEDS: DESENEX/MITRAZOL/ZEASORB 1 APPLIC TOPICAL ×2 (10:13→20:23)
--- NOTE | 2024-12-07 12:08 | W.PN.HOSP.TC ---
Today's Communication/Plan
-
PT/OT to eval
Follow up recs from ID
--Duration of abx/po formulation
Assessment / Plan
Assessment / Plan
NAD, she is able to participate in this exam, asked to bring that bed up in order to sit forward
Scleral Anicteric
MMM
No JVD
CTABL
RRR, S1/S2
Soft, NT, ND, BS+
Warm, Dry, bilateral chronic lower venous stasis changes
AAOx3
Calm
Toxic metabolic encephalopathy, now resolved, this was likely secondary to acute infection, Parkinson's and hospital-acquired delirium
Seems to be back at baseline. CT brain without evidence/findings, EEG without evidence of epileptiform activity
Neurology consulted
Flu A+ Tamiflu x 5 days initiated by ID
Cellulitis right elbow, failed outpatient antibiotics as she was on the doxycycline x 1 week. Started on cefazolin. No additional blood cultures were obtained
ID following
Type 2 diabetes
-Continue Lantus 66 units
-Insulin sliding scale
Paroxysmal atrial fibrillation, currently in sinus rhythm
-Continue dofetilide and eliquis
Essential hypertension
-Continue amlodipine, irbesartan
Parkinson's disease
-Continue carbidopa-levodopa, rasagiline and Aricept
Anxiety/depression
-Continue clonazepam, duloxetine
Dementia
-Continue donepezil
Hyperlipidemia
-Continue statin
Hyponatremia
129 corrected to 131. Today 133
Continue to encourage p.o. intake
Likely able to discharge in the next 24 hours if continues to show improvement
Anticipated Discharge: Within 24 hours
Subjective/Interval History
-
Date of Service: December 07, 2024
Seen and examined. No new complaints. No acute overnight events.
Objective Data
-
Labs:
Laboratory Results
12/07/24
06:26
WBC 5.0
Hgb 11.9 L
Hct 34.4 L
Plt Count 235
Sodium 133 L
Potassium 4.4
Chloride 101
Carbon Dioxide 22
BUN 17
Creatinine 0.8
Glucose 170 H
Calcium 8.6
Vital Signs:
Vital Signs
Temp Pulse Resp BP Pulse Ox
98.4 F 51 16 131/61 97
12/07/24 07:00 12/07/24 07:00 12/07/24 07:00 12/07/24 07:00 12/07/24 07:00
I&O
12/06/24 12/07/24 12/08/24
06:59 06:59 06:59
Intake Total 980 / 980
Output Total 800 / 800
Balance 180 / 180
[2024-12-07 12:50] LABS: Glucose - Point of Care 192 mg/dl (70-99)
--- NOTE | 2024-12-07 14:49 | W.PN.ID1 ---
Date of Service
Date of Service: December 07, 2024
Today's Communication
Continue antibiotics.
Assessment / Plan
Influenza A infection
Right arm cellulitis
Right olecranon bursitis
Upper extremity edema
A-fib (on Eliquis)
Hx CVA
HTN
Dyslipidemia
DM 2 (uncontrolled; A1c = 8.8)
Parkinson's disease
Recommendations:
Continue with oseltamavir to complete a 5-day course.
Continue cefazolin while inpatient. At time of discharge, transition to cephalexin 500 mg p.o. 4 times daily, to continue x 14 days.
Aleksander wrap to right upper extremity to decrease edema. Right upper extremity elevation.
Advised daughter that if no improvement of right elbow at the end of antibiotic therapy, evaluation by Orthopedics would be appropriate.
Chief Complaint
-: Cellulitis and Other (Influenza)
Subjective / Review of Systems
Review of Systems: No Fever
Vital Signs / Physical Exam
Vital Signs
Vital Signs
Temp Pulse Resp BP Pulse Ox
98.8 F 57 24 178/68 97
12/07/24 11:00 12/07/24 11:00 12/07/24 11:00 12/07/24 11:00 12/07/24 11:00
Physical Exam
Constitutional: Comfortable and Non-toxic
Eyes: Sclera Anicteric
Cardiovascular: S1/S2; Negative S3/S4
Pulmonary: Coarse and Non Labored
Gastrointestinal: Soft and Non Tender
Extremities: Other (Right elbow area with mild erythema; improved from previous.)
Neurological: Awake and Alert
Psychological: Calm
Objective Data
Lab Data
Lab Results
12/07/24 06:26
12/07/24 06:26
Estimated Creat Clear 66 ml/min 12/07/24 06:26
Total Bilirubin 1.0 mg/dl (0.2-1.3) 12/06/24 06:21
AST 25 U/L (14-36) 12/06/24 06:21
ALT 23 U/L (0-35) 12/06/24 06:21
Alkaline Phosphatase 83 U/L (38-126) 12/06/24 06:21
Most recent labs reviewed.
Micro Results:
12/05/24 06:39 Influenza Types A & B (ANNIE) - Final
Nasal Swab Influenza A Positive, NAAT
Imaging:
12/05/2024 X-ray right elbow: Mottled appearance of the subcutaneous soft tissues diffusely suggesting diffuse subcutaneous edema. No evidence for fracture or dislocation. No evidence for significant joint effusion.
[2024-12-07 17:07] LABS: Glucose - Point of Care 260 mg/dl (70-99)
--- NOTE | 2024-12-07 17:14 | CM ---
Alert awake oriented patient who lives with her Crow in a split level home with 0 step to enter and 13 to bedroom.She is qassisted in all activities of daily living.Will need PT OT will probable need SNF.Hx of falls at home.
At home VN/[facility]
Pharmacy [facility]
PCP Dr Brian
PLAN Needs PT OT probable SNF
[2024-12-07] MEDS: NOVOLOG FLEXPEN-LOW RESISTANCE 3 UNITS SC (17:26)
[2024-12-07] MEDS: ARICEPT 10 MG PO (20:23)
[2024-12-07] MEDS: KLONOPIN 0.5 MG PO (20:23)
[2024-12-07 22:02] LABS: Glucose - Point of Care 251 mg/dl (70-99)
[2024-12-08] VITALS (7 sets, daily range): BP systolic 90–138; BP diastolic 58–74; PULSE 64; O2SAT 95
[2024-12-08] MEDS: ANCEF 10 IV ×3 (02:19→17:59)
[2024-12-08 07:22] LABS: Hematocrit 36.4 % (37.0-47.0); Hemoglobin 12.4 g/dL (12.0-16.0); Mean Corp Hgb Conc. 34.1 g/dL (33.0-37.0); Mean Corpuscular Volume 93.8 fL (81.0-99.0); Mean Platelet Volume 10.1 fL (7.4-10.4); Platelet Count 260 10^3/uL (130-400); Red Blood Cell Count 3.88 10^6/uL (4.20-5.40); Red Cell Dist. Width 12.1 % (11.5-14.5); White Blood Cell Count 5.5 10^3/uL (4.8-10.8)
[2024-12-08 07:37] LABS: Blood Urea Nitrogen 21 mg/dl (7-17); Calcium 8.5 mg/dl (8.4-10.2); Carbon Dioxide 22 mmol/L (22-30); Estimated Creatinine Clearance 66 ml/min; Glucose 126 mg/dl (70-99); eGFR > 60.00
[2024-12-08 07:39] LABS: Glucose - Point of Care 119 mg/dl (70-99)
[2024-12-08 07:42] LABS: Chloride 104 mmol/L (98-107); Potassium 4.6 mmol/L (3.5-5.1); Sodium 134 mmol/L (135-145)
[2024-12-08] MEDS: NOVOLOG FLEXPEN-LOW RESISTANCE SC (10:19)
[2024-12-08] MEDS: LANTUS 0.66 UNITS SC (10:20)
[2024-12-08] MEDS: TIKOSYN 250 MCG PO (10:21)
[2024-12-08] MEDS: NEURONTIN 600 MG PO ×3 (10:21→23:16)
[2024-12-08] MEDS: TAMIFLU 75 MG PO ×2 (10:22→21:06)
[2024-12-08] MEDS: VITAMIN D3 (cholecalciferol) 25 MCG PO (10:22)
[2024-12-08] MEDS: RASAGILINE MESYLATE 1 MG PO (10:22)
[2024-12-08] MEDS: SINEMET CR 50/200 (EXTENDED RELEASE) 1 TABLET PO (10:22)
[2024-12-08] MEDS: NORVASC 10 MG PO (10:23)
[2024-12-08] MEDS: AVAPRO 150 MG PO (10:23)
[2024-12-08] MEDS: ELIQUIS 5 MG PO ×2 (10:23→21:05)
[2024-12-08] MEDS: CYMBALTA DELAYED RELEASE 30 MG PO (10:23)
[2024-12-08] MEDS: FLUSH (NSS) 2 FLUSH IV ×2 (10:23→17:59)
[2024-12-08] MEDS: CRESTOR 10 MG PO (10:23)
[2024-12-08] MEDS: DESENEX/MITRAZOL/ZEASORB 1 APPLIC TOPICAL ×2 (10:24→21:05)
--- NOTE | 2024-12-08 11:29 | W.PN.HOSP.TC ---
Today's Communication/Plan
-
Assessment / Plan
Assessment / Plan
NAD, some difficulty feeding herself as she was unable to bend her right arm as it is in Aleksander bandage
Scleral Anicteric
MMM
No JVD
CTABL
RRR, S1/S2
Soft, NT, ND, BS+
Warm, Dry, bilateral chronic lower venous stasis changes
AAOx3
Calm
Toxic metabolic encephalopathy, now resolved, this was likely secondary to acute infection, Parkinson's and hospital-acquired delirium
Seems to be back at baseline. CT brain without evidence/findings, EEG without evidence of epileptiform activity
Neurology consulted
Flu A+ Tamiflu x 5 days initiated by ID
Cellulitis right elbow, failed outpatient antibiotics as she was on the doxycycline x 1 week. Started on cefazolin. No additional blood cultures were obtained
ID following
Type 2 diabetes
-Continue Lantus 66 units
-Insulin sliding scale
Paroxysmal atrial fibrillation, currently in sinus rhythm
-Continue dofetilide and eliquis
Essential hypertension
-Continue amlodipine, irbesartan
Parkinson's disease
-Continue carbidopa-levodopa, rasagiline and Aricept
Anxiety/depression
-Continue clonazepam, duloxetine
Dementia
-Continue donepezil
Hyperlipidemia
-Continue statin
Hyponatremia
129 corrected to 131. Today 133
Continue to encourage p.o. intake
PT/OT rec SNF
-Family/ agreeable to this. CM consulted for dispo planning
-Attempted to call twice this AM,but no answer.
Anticipated Discharge: > 48 hours
Subjective/Interval History
-
Date of Service: December 08, 2024
Seen and examined. Had some difficulty she ate pancakes and merchant. Eventually nursing scheduler did come to her bedside and helped her to finish off rest of her breakfast.
Objective Data
-
Labs:
Laboratory Results
12/08/24
06:45
WBC 5.5
Hgb 12.4
Hct 36.4 L
Plt Count 260
Sodium 134 L
Potassium 4.6
Chloride 104
Carbon Dioxide 22
BUN 21 H
Creatinine 0.8
Glucose 126 H
Calcium 8.5
Vital Signs:
Vital Signs
Temp Pulse Resp BP Pulse Ox
98.2 F 63 20 93/70 96
12/08/24 11:21 12/08/24 11:21 12/08/24 11:21 12/08/24 11:21 12/08/24 11:21
I&O
12/07/24 12/08/24 12/09/24
06:59 06:59 06:59
Intake Total 980 / 980 240 / 240
Output Total 800 / 800 1800 / 1800
Balance 180 / 180 -1560 / -1560
[2024-12-08 11:50] LABS: Glucose - Point of Care 261 mg/dl (70-99)
[2024-12-08] MEDS: NOVOLOG FLEXPEN-LOW RESISTANCE 3 UNITS SC (12:39)
--- NOTE | 2024-12-08 14:25 | W.PN.ID1 ---
Date of Service
Date of Service: December 08, 2024
Today's Communication
Continue antibiotics.
Assessment / Plan
Influenza A infection
Right arm cellulitis
Right olecranon bursitis
Upper extremity edema
A-fib (on Eliquis)
Hx CVA
HTN
Dyslipidemia
DM 2 (uncontrolled; A1c = 8.8)
Parkinson's disease
Recommendations:
Continue with oseltamavir to complete a 5-day course.
Continue cefazolin while inpatient. At time of discharge, transition to cephalexin 500 mg p.o. 4 times daily, to continue x 14 days total.
Continue Aleksander wrap to right upper extremity to decrease edema. Right upper extremity elevation.
Advised daughter that if no improvement of right elbow at the end of antibiotic therapy, evaluation by Orthopedics would be appropriate.
Chief Complaint
-: Cellulitis and Other (Influenza)
Subjective / Review of Systems
Review of Systems: No Fever and No Chills
Vital Signs / Physical Exam
Vital Signs
Vital Signs
Temp Pulse Resp BP Pulse Ox
98.2 F 63 20 93/70 96
12/08/24 11:21 12/08/24 11:21 12/08/24 11:21 12/08/24 11:21 12/08/24 11:21
Physical Exam
Constitutional: No Acute Distress, Comfortable, Chronically Ill and Obese
Eyes: Sclera Anicteric
Cardiovascular: S1/S2; Negative S3/S4
Pulmonary: Coarse and Non Labored
Gastrointestinal: Soft and Non Tender
Extremities: Other (Right arm in Aleksander wrap. Mild tenderness in elbow/olecranon area.)
Neurological: Awake and Alert
Psychological: Calm
Objective Data
Lab Data
Lab Results
12/08/24 06:45
12/08/24 06:45
Estimated Creat Clear 66 ml/min 12/08/24 06:45
Total Bilirubin 1.0 mg/dl (0.2-1.3) 12/06/24 06:21
AST 25 U/L (14-36) 12/06/24 06:21
ALT 23 U/L (0-35) 12/06/24 06:21
Alkaline Phosphatase 83 U/L (38-126) 12/06/24 06:21
Most recent labs reviewed.
Micro Results:
12/05/24 06:39 Influenza Types A & B (ANNIE) - Final
Nasal Swab Influenza A Positive, NAAT
Imaging:
12/05/2024 X-ray right elbow: Mottled appearance of the subcutaneous soft tissues diffusely suggesting diffuse subcutaneous edema. No evidence for fracture or dislocation. No evidence for significant joint effusion.
[2024-12-08 16:52] LABS: Glucose - Point of Care 211 mg/dl (70-99)
[2024-12-08] MEDS: NOVOLOG FLEXPEN-LOW RESISTANCE 2 UNITS SC (18:00)
[2024-12-08 21:06] LABS: Glucose - Point of Care 222 mg/dl (70-99)
[2024-12-08] MEDS: KLONOPIN 0.5 MG PO (21:06)
[2024-12-08] MEDS: ARICEPT 10 MG PO (21:06)
[2024-12-09] VITALS (7 sets, daily range): BP systolic 98–165; BP diastolic 60–70
[2024-12-09] MEDS: TIKOSYN 250 MCG PO ×3 (00:05→22:15)
[2024-12-09] MEDS: ANCEF 10 IV ×3 (01:19→15:58)
[2024-12-09 06:58] LABS: Hematocrit 36.3 % (37.0-47.0); Hemoglobin 12.2 g/dL (12.0-16.0); Mean Corp Hgb Conc. 33.6 g/dL (33.0-37.0); Mean Corpuscular Hgb 31.5 pg (27.0-31.0); Mean Corpuscular Volume 93.8 fL (81.0-99.0); Mean Platelet Volume 9.7 fL (7.4-10.4); Platelet Count 274 10^3/uL (130-400); Red Blood Cell Count 3.87 10^6/uL (4.20-5.40); Red Cell Dist. Width 12.2 % (11.5-14.5); White Blood Cell Count 5.9 10^3/uL (4.8-10.8)
[2024-12-09 07:39] LABS: Blood Urea Nitrogen 22 mg/dl (7-17); Calcium 8.3 mg/dl (8.4-10.2); Carbon Dioxide 22 mmol/L (22-30); Chloride 102 mmol/L (98-107); Estimated Creatinine Clearance 66 ml/min; Glucose 153 mg/dl (70-99); Potassium 4.4 mmol/L (3.5-5.1); Sodium 134 mmol/L (135-145); eGFR > 60.00
[2024-12-09 08:35] LABS: Glucose - Point of Care 128 mg/dl (70-99)
[2024-12-09] MEDS: LANTUS 0.66 UNITS SC (09:49)
[2024-12-09] MEDS: NOVOLOG FLEXPEN-LOW RESISTANCE SC (09:49)
[2024-12-09] MEDS: CYMBALTA DELAYED RELEASE 30 MG PO (09:50)
[2024-12-09] MEDS: CRESTOR 10 MG PO (09:50)
[2024-12-09] MEDS: TAMIFLU 75 MG PO ×2 (09:50→20:13)
[2024-12-09] MEDS: RASAGILINE MESYLATE 1 MG PO (09:50)
[2024-12-09] MEDS: VITAMIN D3 (cholecalciferol) 25 MCG PO (09:50)
[2024-12-09] MEDS: NORVASC 10 MG PO (09:50)
[2024-12-09] MEDS: AVAPRO 150 MG PO (09:50)
[2024-12-09] MEDS: NEURONTIN 600 MG PO ×3 (09:50→22:15)
[2024-12-09] MEDS: SINEMET CR 50/200 (EXTENDED RELEASE) 1 TABLET PO (09:51)
[2024-12-09] MEDS: ELIQUIS 5 MG PO ×2 (09:51→20:13)
[2024-12-09] MEDS: DESENEX/MITRAZOL/ZEASORB 1 APPLIC TOPICAL ×2 (09:52→20:19)
--- NOTE | 2024-12-09 10:22 | CM ---
Addendum entered by Tita Lovett 12/09/24 12:28:
CM spoke with patient daughter Rosaline and will place the following referrals to [facility], [facility], [facility] and [facility]. CM will send referrals to above facilities.
Original Note:
Patient seen at bedside. Patient requested CM call and CM left message. CM will continue to follow for discharge planning needs.
Plan; SNF pending patient choices will send referrals
--- NOTE | 2024-12-09 12:40 | W.PN.HOSP.TC ---
Today's Communication/Plan
-
Pending SNF
At time of discharge, transition to cephalexin 500 mg p.o. 4 times daily, to continue x 14 days total
Assessment / Plan
Assessment / Plan
NAD, some difficulty feeding herself as she was unable to bend her right arm as it is in Aleksander bandage
Scleral Anicteric
MMM
No JVD
CTABL
RRR, S1/S2
Soft, NT, ND, BS+
Warm, Dry, bilateral chronic lower venous stasis changes
AAOx3
Calm
Toxic metabolic encephalopathy, now resolved, this was likely secondary to acute infection, Parkinson's and hospital-acquired delirium
Seems to be back at baseline. CT brain without evidence/findings, EEG without evidence of epileptiform activity
Neurology consulted
Flu A+ Tamiflu x 5 days initiated by ID
Cellulitis right elbow, failed outpatient antibiotics as she was on the doxycycline x 1 week. Started on cefazolin. No additional blood cultures were obtained
ID following
Type 2 diabetes
-Continue Lantus 66 units
-Insulin sliding scale
Paroxysmal atrial fibrillation, currently in sinus rhythm
-Continue dofetilide and eliquis
Essential hypertension
-Continue amlodipine, irbesartan
Parkinson's disease
-Continue carbidopa-levodopa, rasagiline and Aricept
Anxiety/depression
-Continue clonazepam, duloxetine
Dementia
-Continue donepezil
Hyperlipidemia
-Continue statin
Hyponatremia
129 corrected to 131. Today 133
Continue to encourage p.o. intake
PT/OT rec SNF
-Family/ agreeable to this. CM consulted for dispo planning
Anticipated Discharge: Within 24 hours
Subjective/Interval History
-
Date of Service: December 09, 2024
Seen and examined. No new complaints. No acute overnight events.
Ate her breakfast only had cereal but she was going to start eating some. She was upset that she ordered to eat because her coffee with stated that she discharge radiculopathy as well
Objective Data
-
Labs:
Laboratory Results
12/09/24
06:10
WBC 5.9
Hgb 12.2
Hct 36.3 L
Plt Count 274
Sodium 134 L
Potassium 4.4
Chloride 102
Carbon Dioxide 22
BUN 22 H
Creatinine 0.8
Glucose 153 H
Calcium 8.3 L
Vital Signs:
Vital Signs
Temp Pulse Resp BP Pulse Ox
98.1 F 59 20 153/63 94
12/09/24 11:30 12/09/24 11:30 12/09/24 11:30 12/09/24 11:30 12/09/24 11:30
I&O
12/08/24 12/09/24 12/10/24
06:59 06:59 06:59
Intake Total 240 / 240 720 / 720
Output Total 1800 / 1800
Balance -1560 / -1560 720 / 720
[2024-12-09 12:43] LABS: Glucose - Point of Care 270 mg/dl (70-99)
[2024-12-09] MEDS: NOVOLOG FLEXPEN-LOW RESISTANCE 3 UNITS SC (13:02)
[2024-12-09 16:22] LABS: Glucose - Point of Care 195 mg/dl (70-99)
[2024-12-09] MEDS: NOVOLOG FLEXPEN-LOW RESISTANCE 1 UNITS SC (16:38)
[2024-12-09 21:57] LABS: Glucose - Point of Care 198 mg/dl (70-99)
[2024-12-09] MEDS: MIRALAX 17 GRAMS PO (22:14)
[2024-12-09] MEDS: KLONOPIN 0.5 MG PO (22:15)
[2024-12-09] MEDS: ARICEPT 10 MG PO (22:15)
[2024-12-10] VITALS (7 sets, daily range): BP systolic 119–157; BP diastolic 63–74; PULSE 59; O2SAT 100
[2024-12-10] MEDS: ANCEF 10 IV ×4 (00:44→23:27)
[2024-12-10] MEDS: DUONEB 3 ML INH (04:48)
--- NOTE | 2024-12-10 05:03 | PTCARENOTE ---
Pt with audible wheezing RR 24 with SOB on exertion. House [employer]ACH[employer] OPERATOR notified order for x1 neb treatment.
[2024-12-10 07:04] LABS: Hematocrit 35.2 % (37.0-47.0); Mean Corp Hgb Conc. 34.1 g/dL (33.0-37.0); Mean Corpuscular Hgb 32.1 pg (27.0-31.0); Mean Corpuscular Volume 94.1 fL (81.0-99.0); Mean Platelet Volume 10.3 fL (7.4-10.4); Platelet Count 271 10^3/uL (130-400); Red Blood Cell Count 3.74 10^6/uL (4.20-5.40); Red Cell Dist. Width 11.9 % (11.5-14.5)
[2024-12-10 07:26] LABS: Blood Urea Nitrogen 19 mg/dl (7-17); Calcium 8.6 mg/dl (8.4-10.2); Carbon Dioxide 24 mmol/L (22-30); Chloride 105 mmol/L (98-107); Estimated Creatinine Clearance 66 ml/min; Glucose 107 mg/dl (70-99); Potassium 4.5 mmol/L (3.5-5.1); Sodium 136 mmol/L (135-145); eGFR > 60.00
[2024-12-10 08:23] LABS: Glucose - Point of Care 119 mg/dl (70-99)
[2024-12-10] MEDS: NOVOLOG FLEXPEN-LOW RESISTANCE SC ×2 (08:33→12:38)
[2024-12-10] MEDS: CRESTOR 10 MG PO (09:26)
[2024-12-10] MEDS: NEURONTIN 600 MG PO ×3 (09:26→21:32)
[2024-12-10] MEDS: AVAPRO 150 MG PO (09:26)
[2024-12-10] MEDS: RASAGILINE MESYLATE 1 MG PO (09:26)
[2024-12-10] MEDS: SINEMET CR 50/200 (EXTENDED RELEASE) 1 TABLET PO (09:27)
[2024-12-10] MEDS: ELIQUIS 5 MG PO ×2 (09:27→21:33)
[2024-12-10] MEDS: VITAMIN D3 (cholecalciferol) 25 MCG PO (09:27)
[2024-12-10] MEDS: TIKOSYN 250 MCG PO ×2 (09:27→21:34)
[2024-12-10] MEDS: CYMBALTA DELAYED RELEASE 30 MG PO (09:27)
[2024-12-10] MEDS: NORVASC 10 MG PO (09:27)
[2024-12-10] MEDS: TAMIFLU 75 MG PO (09:27)
[2024-12-10] MEDS: LANTUS 0.66 UNITS SC (09:28)
[2024-12-10] MEDS: DESENEX/MITRAZOL/ZEASORB 1 APPLIC TOPICAL ×2 (09:31→21:35)
--- NOTE | 2024-12-10 10:47 | W.PN.HOSP.TC ---
Today's Communication/Plan
-
dispo planning
Assessment / Plan
Assessment / Plan
Toxic metabolic encephalopathy, now resolved, this was likely secondary to acute infection, Parkinson's and hospital-acquired delirium
Seems to be back at baseline. CT brain without evidence/findings, EEG without evidence of epileptiform activity
Neurology consulted
Flu A+ Tamiflu x 5 days initiated by ID
Cellulitis right elbow, failed outpatient antibiotics as she was on the doxycycline x 1 week. Started on cefazolin. No additional blood cultures were obtained
ID following
-continue Cefazolin - change to Keflex on DC - day 5 antibiotics
Type 2 diabetes
-Continue Lantus 66 units
-Insulin sliding scale
Paroxysmal atrial fibrillation, currently in sinus rhythm
-Continue dofetilide and eliquis
Essential hypertension
-Continue amlodipine, irbesartan
Parkinson's disease
-Continue carbidopa-levodopa, rasagiline and Aricept
Anxiety/depression
-Continue clonazepam, duloxetine
Dementia
-Continue donepezil
Hyperlipidemia
-Continue statin
Hyponatremia
129 corrected to 131. Today 133
Continue to encourage p.o. intake
PT/OT rec SNF
-Family/ agreeable to this. CM consulted for dispo planning
Anticipated Discharge: Within 24 hours
Subjective/Interval History
-
Date of Service: December 10, 2024
states she is feeling better
no longer confused
can extend elbow
Objective Data
-
Labs:
Laboratory Results
12/10/24
06:15
WBC 6.0
Hgb 12.0
Hct 35.2 L
Plt Count 271
Sodium 136
Potassium 4.5
Chloride 105
Carbon Dioxide 24
BUN 19 H
Creatinine 0.8
Glucose 107 H
Calcium 8.6
Vital Signs:
Vital Signs
Temp Pulse Resp BP Pulse Ox
97.6 F 61 18 146/63 96
12/10/24 08:03 12/10/24 08:03 12/10/24 08:03 12/10/24 08:03 12/10/24 08:03
I&O
12/09/24 12/10/24 12/11/24
06:59 06:59 06:59
Intake Total 720 / 720 1200 / 1200
Balance 720 / 720 1200 / 1200
Review of Systems
-
History Source: Patient
All other systems: Reviewed and negative
Physical Exam
-
General: No Apparent Distress
HEENT: PERRLA
Respiratory: Clear to Auscultation; Negative Wheezes
Cardiac: Regular Rhythm and S1/S2
GI: Soft and Nontender
Musculoskeletal: Other (right elbow with minimal swelling; can extend, non-tender)
Skin: Warm and Dry; Negative Rash
Neuro: AO x 3
Psych: Calm
Data Reviewed
-
Diagnostic Radiology: Report Reviewed by me
Labs: Labs Reviewed by me
--- NOTE | 2024-12-10 10:53 | CM ---
Addendum entered by Gris Bianchi 12/10/24 15:04:
left VM for daughter re bed choice.
Addendum entered by Gris Bianchi 12/10/24 12:09:
[facility] also able to offer a bed.
Original Note:
Patient seen bedside with daughter.
Skilled referrals pending.
Tamiflu thru today.
Accepted at [facility] and [facility] pending bed availability on day of d/c, symptoms and completion of Tamiflu.
[facility] home, will review.
[facility] no beds until possibly Tuesday or , will review (off today)
[facility] no beds until possibly Tuesday.
Plan: skilled rehab once medically cleared, bed available and auth obtained.
--- NOTE | 2024-12-10 11:46 | W.PN.ID1 ---
Date of Service
Date of Service: December 10, 2024
Today's Communication
Continue antibiotics. See below�
Assessment / Plan
Influenza A infection
Right arm cellulitis
Right olecranon bursitis
Upper extremity edema
A-fib (on Eliquis)
Hx CVA
HTN
Dyslipidemia
DM 2 (uncontrolled; A1c = 8.8)
Parkinson's disease
Recommendations:
Continue with oseltamavir to complete a 5-day course (today)
Continue cefazolin (day #6) while inpatient. At time of discharge, transition to cephalexin 500 mg p.o. 4 times daily, to continue through 12/18 (14 days total)
Continue Aleksander wrap and/or Tubigrip to right upper extremity to decrease edema. Right upper extremity elevation.
Previously advised daughter that if no improvement of right elbow at the end of antibiotic therapy, evaluation by Orthopedics would be appropriate.
Chief Complaint
-: Cellulitis and Other (Influenza)
Subjective / Review of Systems
Review of Systems: No Fever, No Chills, No Cough and No Sputum Production
Vital Signs / Physical Exam
Vital Signs
Vital Signs
Temp Pulse Resp BP Pulse Ox
97.6 F 61 18 146/63 96
12/10/24 08:03 12/10/24 08:03 12/10/24 08:03 12/10/24 08:03 12/10/24 08:03
Physical Exam
Constitutional: No Acute Distress, Comfortable and Non-toxic
Eyes: Sclera Anicteric
Cardiovascular: S1/S2; Negative S3/S4
Pulmonary: Coarse and Non Labored
Gastrointestinal: Soft and Non Tender
Extremities: Other (Right arm with mild tenderness in elbow/olecranon area.)
Musculoskeletal: Negative Joint Swelling or Joint Effusion
Neurological: Awake and Alert
Psychological: Calm
Objective Data
Lab Data
Lab Results
12/10/24 06:15
12/10/24 06:15
Estimated Creat Clear 66 ml/min 12/10/24 06:15
Total Bilirubin 1.0 mg/dl (0.2-1.3) 12/06/24 06:21
AST 25 U/L (14-36) 12/06/24 06:21
ALT 23 U/L (0-35) 12/06/24 06:21
Alkaline Phosphatase 83 U/L (38-126) 12/06/24 06:21
Most recent labs reviewed.
Micro Results:
12/05/24 06:39 Influenza Types A & B (ANNIE) - Final
Nasal Swab Influenza A Positive, NAAT
Imaging:
12/05/2024 X-ray right elbow: Mottled appearance of the subcutaneous soft tissues diffusely suggesting diffuse subcutaneous edema. No evidence for fracture or dislocation. No evidence for significant joint effusion.
[2024-12-10 12:31] LABS: Glucose - Point of Care 130 mg/dl (70-99)
[2024-12-10] MEDS: MIRALAX 17 GRAMS PO (14:18)
[2024-12-10 16:54] LABS: Glucose - Point of Care 177 mg/dl (70-99)
[2024-12-10] MEDS: NOVOLOG FLEXPEN-LOW RESISTANCE 1 UNITS SC (17:01)
[2024-12-10] MEDS: KLONOPIN 0.5 MG PO (21:31)
[2024-12-10] MEDS: ARICEPT 10 MG PO (21:34)
[2024-12-10 21:51] LABS: Glucose - Point of Care 153 mg/dl (70-99)
[2024-12-10] MEDS: FLUSH (NSS) 2 FLUSH IV (23:28)
[2024-12-11 03:44] VITALS: BP 128/67
[2024-12-11 07:00] VITALS: BP 150/61
[2024-12-11 07:35] LABS: Hematocrit 36.8 % (37.0-47.0); Hemoglobin 12.6 g/dL (12.0-16.0); Mean Corp Hgb Conc. 34.2 g/dL (33.0-37.0); Mean Corpuscular Volume 93.4 fL (81.0-99.0); Mean Platelet Volume 9.7 fL (7.4-10.4); Platelet Count 284 10^3/uL (130-400); Red Blood Cell Count 3.94 10^6/uL (4.20-5.40); Red Cell Dist. Width 11.9 % (11.5-14.5); White Blood Cell Count 8.3 10^3/uL (4.8-10.8)
[2024-12-11 07:57] LABS: Blood Urea Nitrogen 23 mg/dl (7-17); Calcium 8.9 mg/dl (8.4-10.2); Carbon Dioxide 26 mmol/L (22-30); Chloride 103 mmol/L (98-107); Estimated Creatinine Clearance 66 ml/min; Glucose 71 mg/dl (70-99); Potassium 4.4 mmol/L (3.5-5.1); Sodium 137 mmol/L (135-145); eGFR > 60.00
[2024-12-11 08:02] VITALS: BP 161/64; PULSE 64; O2SAT 97
[2024-12-11 08:45] LABS: Glucose - Point of Care 73 mg/dl (70-99)
[2024-12-11] MEDS: NOVOLOG FLEXPEN-LOW RESISTANCE SC (09:09)
[2024-12-11] MEDS: MIRALAX 17 GRAMS PO (09:10)
[2024-12-11] MEDS: RASAGILINE MESYLATE 1 MG PO (09:11)
[2024-12-11] MEDS: NEURONTIN 600 MG PO ×2 (09:11→16:06)
[2024-12-11] MEDS: CYMBALTA DELAYED RELEASE 30 MG PO (09:11)
[2024-12-11] MEDS: CRESTOR 10 MG PO (09:12)
[2024-12-11] MEDS: AVAPRO 150 MG PO (09:12)
[2024-12-11] MEDS: VITAMIN D3 (cholecalciferol) 25 MCG PO (09:12)
[2024-12-11] MEDS: NORVASC 10 MG PO (09:13)
[2024-12-11] MEDS: SINEMET CR 50/200 (EXTENDED RELEASE) 1 TABLET PO (09:13)
[2024-12-11] MEDS: ELIQUIS 5 MG PO (09:14)
[2024-12-11] MEDS: DESENEX/MITRAZOL/ZEASORB 1 APPLIC TOPICAL (09:14)
[2024-12-11] MEDS: LANTUS 0.66 UNITS SC (09:27)
--- NOTE | 2024-12-11 10:51 | W.PN.HOSP.TC ---
Today's Communication/Plan
-
plan to DC to SNF today
Assessment / Plan
Assessment / Plan
Toxic metabolic encephalopathy, now resolved, this was likely secondary to acute infection, Parkinson's and hospital-acquired delirium
Seems to be back at baseline. CT brain without evidence/findings, EEG without evidence of epileptiform activity
Neurology consulted
Flu A+ Tamiflu x 5 days initiated by ID - completed course
Cellulitis right elbow, failed outpatient antibiotics as she was on the doxycycline x 1 week. Started on cefazolin. No additional blood cultures were obtained
ID following
change to Keflex to take through 12/18/24 - 14 days of therapy (confirmed with pharmacy Ok to give with Tikosyn given Qtc 422)
Type 2 diabetes
-Continue Lantus 66 units
-Insulin sliding scale
Paroxysmal atrial fibrillation, currently in sinus rhythm
-Continue dofetilide and eliquis
Essential hypertension
-Continue amlodipine, irbesartan
Parkinson's disease
-Continue carbidopa-levodopa, rasagiline and Aricept
Anxiety/depression
-Continue clonazepam, duloxetine
Dementia
-Continue donepezil
Hyperlipidemia
-Continue statin
Hyponatremia
129 corrected to 131. Today 133
Continue to encourage p.o. intake
PT/OT rec SNF
-Family/ agreeable to this. CM consulted for dispo planning
Anticipated Discharge: Today
Subjective/Interval History
-
Date of Service: December 11, 2024
right elbow less swollen
no fevers/chills
Objective Data
-
Labs:
Laboratory Results
12/11/24
07:04
WBC 8.3
Hgb 12.6
Hct 36.8 L
Plt Count 284
Sodium 137
Potassium 4.4
Chloride 103
Carbon Dioxide 26
BUN 23 H
Creatinine 0.8
Glucose 71
Calcium 8.9
Vital Signs:
Vital Signs
Temp Pulse Resp BP Pulse Ox
97.6 F 63 20 150/61 96
12/11/24 07:00 12/11/24 09:13 12/11/24 07:00 12/11/24 09:13 12/11/24 07:00
I&O
12/10/24 12/11/24 12/12/24
06:59 06:59 06:59
Intake Total 1200 / 1200 860 / 860
Balance 1200 / 1200 860 / 860
Review of Systems
-
History Source: Patient
All other systems: Reviewed and negative
Physical Exam
-
General: No Apparent Distress
HEENT: PERRLA
Respiratory: Clear to Auscultation; Negative Wheezes
Cardiac: Regular Rhythm and S1/S2
GI: Soft and Nontender
Musculoskeletal: Other (right elbow with minimal swelling; can extend, non-tender)
Skin: Warm and Dry; Negative Rash
Neuro: AO x 3
Psych: Calm
Data Reviewed
-
Diagnostic Radiology: Report Reviewed by me
Labs: Labs Reviewed by me
--- NOTE | 2024-12-11 10:56 | W.DS.TRANS ---
DC Summary - Controls Project Engineer
-
Discharge Instructions:
Sleep Apnea Risk Low
Discharge Diagnosis/Procedures Influenza, Right Elbow Cellulitis
Diet Regular
Activity As tolerated
Driving Restrictions No driving
Bathing Restrictions None
Other Services PT,OT
Instructions:
Stand-Alone Forms:
Changes to Home Medications: Yes
Discharge Medications:
DC Medications w/original date entered in [employer]
apixaban 5 mg tablet (Eliquis) 5 mg PO BID Blood Clot Prevention/Tx 03/04/18
coenzyme Q10 100 mg capsule (Co Q-10) 100 mg PO DAILY Supplement ##0 03/04/18
insulin glargine 100 unit/mL (3 mL) subcutaneous pen (Lantus Solostar U-100 Insulin) 66 units SC DAILY Diabetes 03/04/18
rasagiline 1 mg tablet 1 mg PO DAILY Neurological Condition 03/04/18
rosuvastatin 10 mg tablet 10 mg PO DAILY High Cholesterol 03/04/18
amlodipine 5 mg tablet 10 mg PO DAILY Blood Pressure 06/23/23
donepezil 10 mg tablet 10 mg PO HS Neurological Condition 06/23/23
irbesartan 150 mg tablet 150 mg PO DAILY Blood Pressure 06/23/23
carbidopa ER 50 mg-levodopa 200 mg tablet,extended release 1 tab PO DAILY Parkinson's disease 12/05/24
cholecalciferol (vitamin D3) 25 mcg (1,000 unit) tablet 25 mcg PO DAILY Supplement 12/05/24
dofetilide 250 mcg capsule 250 mcg PO BID@1000,2200 Arrhythmia 12/05/24
dulaglutide 3 mg/0.5 mL subcutaneous pen injector (Trulicity) 3 mg SC WEEKLY Diabetes 12/05/24
duloxetine 30 mg capsule,delayed release 30 mg PO DAILY Mental Health/Anxiety 12/05/24
gabapentin 600 mg tablet 600 mg PO TID Pain 12/05/24
acetaminophen 325 mg tablet 650 mg (2 x 325 mg) PO Q4HPRN PRN headache,mild pain,fever>100.4 #20 tabs 12/11/24
cephalexin 500 mg capsule 500 mg PO QID #30 caps 12/11/24
clonazepam 0.5 mg tablet 0.5 mg PO HS Mental Health/Anxiety #3 tabs 12/11/24
miconazole nitrate 2 % topical powder (Miconazorb AF) 1 applic topical BID #85 grams 12/11/24
polyethylene glycol 3350 17 gram oral powder packet 17 g PO DAILY #14 ea 12/11/24
Home Medication Changes
Addition of Keflex, Miralax, Miconazole, Tylenol PRN
Pending Results: No
[2024-12-11 11:15] VITALS: BP 150/70
[2024-12-11] MEDS: ANCEF 10 IV (11:15)
[2024-12-11] MEDS: FLUSH (NSS) 1 FLUSH IV (11:15)
--- NOTE | 2024-12-11 11:16 | CM ---
Lisa is cleared for discharge to [facility] today. CM called [facility] for authorization for transfer to [facility]; I spoke with Carmen to provide clinical information for SNF authorization. Per Carmen, the authorization request needs to be
reviewed by the Manager Heart. Pending Reference # [id number].
Carmen will call this CM back once the authorization has been reviewed with the [facility] Manager Heart.
CM to follow.
[2024-12-11 11:37] LABS: Glucose - Point of Care 152 mg/dl (70-99)
[2024-12-11] MEDS: KEFLEX 500 MG PO ×2 (11:58→16:57)
[2024-12-11] MEDS: TIKOSYN 250 MCG PO (11:59)
[2024-12-11] MEDS: NOVOLOG FLEXPEN-LOW RESISTANCE 1 UNITS SC ×2 (11:59→17:11)
--- NOTE | 2024-12-11 12:39 | CM ---
Addendum entered by Selma Raymond 12/11/24 15:00:
Authorization for transfer to [facility] for SNF approved by the medical education coordinator.
Auth# [id number] for DOS 12/11-12/17. NRD is 12/17 to [phone].
Original Note:
CM met with Lisa and her daughter at bedside to discuss transfer to [facility]. IMM provided. W/C van requested for transport.
Plan: Transfer to [facility] pending insurance authorization which is being reviewed by the [facility] Associate Director Regulatory Affairs.
[facility] Report: [phone]
[facility] Fax is not working today.
--- NOTE | 2024-12-11 13:18 | W.DCSUMMARY ---
Discharge Summary
Discharge Data
Date of Admission: 12/07/24
Date of Discharge: 12/11/24
-
Pending Results: No
Hospital Course
Discharging Physician : Dr. Raegan Palomares
Disposition : SNF
Primary care physician : Dr. Angela Brian
Principal Discharge diagnosis : Cellulitis of Right Elbow, Influenza A
Hospital Course :
Ms. Lisa Cho is a 79 yo woman with hx afib on Eliquis, DM, Parkinson disease, essential HTN who presents to the ER post fall 2 weeks ago on right elbow with worsening redness and swelling. She is status post Doxycycline course without
improvement as outpatient. Triage vitals stable. Labs without leukocytosis. She was also found to have recent Influenza. She was admitted to medicine with ID consulting.
Patient received IV Cefazolin in house with improvement in exam, and is discharged on Keflex to complete a total of a 2 week course. She received Tamiflu in the hospital for flu, symptoms nearly resolved.
Hospital course c/b TME in setting of infection that resolved. Head CT without acute event.
Home med regimen continued.
She is discharged to SNF.
Time spent on discharge was 32 minutes.
Important imaging findings :
HEAD CT
IMPRESSION:
No acute intracranial abnormality noted.
No acute intracranial hemorrhage. Minor chronic microvascular white matter ischemic disease. Mild to moderate atrophy.
Elbow X-Ray
IMPRESSION: No evidence of acute fracture or dislocation.
No significant joint effusion is identified.
CXR
IMPRESSION:
Lungs appear radiographically clear. Mild cardiomegaly with no evidence for pulmonary edema.
Procedure findings :
Discharge Plan
-
Patient Disposition: [facility]iary[facility]SNF
Discharge Diagnosis/Procedures: Influenza, Right Elbow Cellulitis
Diet: Regular
Activity: As tolerated
Driving Restrictions: No driving
Bathing Restrictions: None
Other Services: PT and OT
Activity Restrictions/Additional Instructions:
Continue Aleksander wrap and/or Tubigrip to right upper extremity to decrease edema. Right upper extremity elevation.
Referrals:
Agnela Brian MD [Family Provider] - in less than 1 week
Additional Discharge Medication Instructions: Take cephalexin 500 mg p.o. 4 times daily, to continue through 12/18 (14 days total)
Prescriptions:
New
miconazole nitrate [Miconazorb AF] 2 % Powder
1 applic topical BID Qty: 85 0RF
polyethylene glycol 3350 17 gram Powder In Packet
17 g PO DAILY Qty: 14 0RF
cephalexin 500 mg Capsule
500 mg PO QID Qty: 30 0RF
acetaminophen 325 mg Tablet
650 mg PO Q4HPRN PRN (Reason: headache,mild pain,fever>100.4) Qty: 20 0RF
Continued
coenzyme Q10 [Co Q-10] 100 mg Capsule
100 mg PO DAILY Qty: 0
rosuvastatin 10 MG tablet
10 mg PO DAILY
rasagiline 1 MG tablet
1 mg PO DAILY
insulin glargine [Lantus Solostar U-100 Insulin] 300 UNITS/3 ML insulin pen
66 units SC DAILY
Eliquis 5 MG tablet
5 mg PO BID
donepezil 10 mg Tablet
10 mg PO HS
irbesartan 150 mg Tablet
150 mg PO DAILY
amlodipine 5 MG tablet
10 mg PO DAILY
carbidopa-levodopa 50-200 mg Tablet Extended Release
1 tab PO DAILY
duloxetine 30 mg Capsule,Delayed Release(Dr/Ec)
30 mg PO DAILY
gabapentin 600 mg tablet
600 mg PO TID
cholecalciferol (vitamin D3) 25 mcg (1,000 unit) Tablet
25 mcg PO DAILY
Trulicity 3 mg/0.5 mL pen injector
3 mg SC WEEKLY
dofetilide 250 MCG capsule
250 mcg PO BID@1000,2200
clonazepam 0.5 mg Tablet
0.5 mg PO HS Qty: 3 0RF
Discontinued
doxycycline hyclate 100 mg Capsule
100 mg PO BID
Discharge Orders:
Discharge Patient (As Directed); Ordered 12/11/24
Ordered By: Raegan Palomares
Discharge Date and Time
Print Language: MICRONESIAN
[2024-12-11] MEDS: SENOKOT-S 1 TABLET PO (13:42)
--- NOTE | 2024-12-11 16:01 | W.PN.ID1 ---
Date of Service
Date of Service: December 11, 2024
Today's Communication
Continue antibiotics. See below�
Assessment / Plan
Influenza A infection
Right arm cellulitis
Right olecranon bursitis
Upper extremity edema
A-fib (on Eliquis)
Hx CVA
HTN
Dyslipidemia
DM 2 (uncontrolled; A1c = 8.8)
Parkinson's disease
Recommendations:
Patient has completed a course of oseltamavir.
Continue cephalexin 500 mg p.o. 4 times daily, to continue through 12/18 (14 days total)
Continue Aleksander wrap and/or Tubigrip to right upper extremity to decrease edema. Right upper extremity elevation.
Previously advised daughter that if no improvement of right elbow at the end of antibiotic therapy, evaluation by Orthopedics would be appropriate.
����������������������������������������������������������
Chief Complaint
-: Cellulitis and Other (Influenza)
Subjective / Review of Systems
Review of Systems: No Fever and No Chills
Vital Signs / Physical Exam
Vital Signs
Vital Signs
Temp Pulse Resp BP Pulse Ox
97.2 F 59 16 150/70 100
12/11/24 11:15 12/11/24 11:15 12/11/24 11:15 12/11/24 11:15 12/11/24 11:15
Physical Exam
Constitutional: No Acute Distress, Comfortable and Non-toxic
Eyes: Sclera Anicteric
Cardiovascular: S1/S2; Negative S3/S4
Pulmonary: Coarse and Non Labored
Gastrointestinal: Soft and Non Tender
Extremities: Other (Right arm with decreased tenderness in elbow/olecranon area. Less edema.)
Musculoskeletal: Negative Joint Swelling or Joint Effusion
Neurological: Awake and Alert
Psychological: Calm
Objective Data
Lab Data
Lab Results
12/11/24 07:04
12/11/24 07:04
Estimated Creat Clear 66 ml/min 12/11/24 07:04
Total Bilirubin 1.0 mg/dl (0.2-1.3) 12/06/24 06:21
AST 25 U/L (14-36) 12/06/24 06:21
ALT 23 U/L (0-35) 12/06/24 06:21
Alkaline Phosphatase 83 U/L (38-126) 12/06/24 06:21
Most recent labs reviewed.
Micro Results:
12/05/24 06:39 Influenza Types A & B (ANNIE) - Final
Nasal Swab Influenza A Positive, NAAT
Imaging:
12/05/2024 X-ray right elbow: Mottled appearance of the subcutaneous soft tissues diffusely suggesting diffuse subcutaneous edema. No evidence for fracture or dislocation. No evidence for significant joint effusion.
[2024-12-11 17:07] LABS: Glucose - Point of Care 186 mg/dl (70-99)
== END 2024-12-11 17:59 | DRG 865 ==
LOC: 4 EAST ACU 12:15
PROVIDERS: Hospitalist; Student in an Organized Health Care Education/Training Program; ADMITTING PHYSICIAN Hospitalist; ATTENDING PHYSICIAN Student in an Organized Health Care Education/Training Program; CONSULT PHYSICIAN Internal Medicine Infectious Disease; EMERGENCY PHYSICIAN Student in an Organized Health Care Education/Training Program; FAMILY PHYSICIAN Internal Medicine
DX: J09.X9 Influenza due to identified novel influenza A virus with other manifestations (principal); G92.8 Other toxic encephalopathy; F02.83 Dementia in other diseases classified elsewhere, unspecified severity, with mood disturbance; F02.84 Dementia in other diseases classified elsewhere, unspecified severity, with anxiety; L03.113 Cellulitis of right upper limb; E87.1 Hypo-osmolality and hyponatremia; F05 Delirium due to known physiological condition; E11.65 Type 2 diabetes mellitus with hyperglycemia; G20.A1 Parkinson's disease without dyskinesia, without mention of fluctuations; I10 Essential (primary) hypertension; M70.21 Olecranon bursitis, right elbow; I48.0 Paroxysmal atrial fibrillation; E78.00 Pure hypercholesterolemia, unspecified; R63.39 Other feeding difficulties; F32.A Depression, unspecified; W19.XXXA Unspecified fall, initial encounter; Y93.9 Activity, unspecified; Y92.009 Unspecified place in unspecified non-institutional (private) residence as the place of occurrence of the external cause; Z96.651 Presence of right artificial knee joint; Z79.01 Long term (current) use of anticoagulants; Z87.891 Personal history of nicotine dependence; Z98.1 Arthrodesis status; Z79.4 Long term (current) use of insulin; Z91.048 Other nonmedicinal substance allergy status; Z86.73 Personal history of transient ischemic attack (TIA), and cerebral infarction without residual deficits; Z11.52 Encounter for screening for COVID-19
CPT/HCPCS: 70450; 71046; 73080; 80048; 80053; 82962; 83036; 84484; 85025; 85027; 87502; 87811; 93005; 94640; 95816; 96361; 96374; 97163; 97167; 97530; 97535; 99285

== ENCOUNTER → 2024-12-14 10:24 | Outpatient (REF) | payer OTHER, SELFPAY ==
[2024-12-14 11:29] LABS: % Basophils 0.8 % (0-2); % Eosinophils 2.2 % (0-6); % Immature Granulocytes 0.7 % (0-0.5); % Lymphocytes 28.4 % (20.5-51.1); % Monocytes 12.7 % (1.7-9.3); % Neutrophils 55.2 % (42.2-75.2); Absolute Basophils 0.1 10^3/uL (0-0.2); Absolute Eosinophils 0.2 10^3/uL (0-0.7); Absolute Immature Granulocytes 0.1 10^3/uL (0-0.05); Absolute Lymphocytes 2.1 10^3/uL (1.2-3.4); Absolute Monocytes 0.9 10^3/uL (0.1-0.6); Absolute Neutrophils 4.1 10^3/uL (1.4-6.5); Hematocrit 36.6 % (37.0-47.0); Mean Corp Hgb Conc. 32.8 g/dL (33.0-37.0); Mean Corpuscular Hgb 31.6 pg (27.0-31.0); Mean Corpuscular Volume 96.3 fL (81.0-99.0); Mean Platelet Volume 10.2 fL (7.4-10.4); Nucleated Red Blood Cells % 0 %; Platelet Count 286 10^3/uL (130-400); Red Cell Dist. Width 12.5 % (11.5-14.5); White Blood Cell Count 7.3 10^3/uL (4.8-10.8)
[2024-12-14 11:45] LABS: Blood Urea Nitrogen 26 mg/dl (7-17); Calcium 8.8 mg/dl (8.4-10.2); Carbon Dioxide 24 mmol/L (22-30); Chloride 102 mmol/L (98-107); Glucose 174 mg/dl (70-99); Potassium 4.6 mmol/L (3.5-5.1); Sodium 134 mmol/L (135-145); eGFR > 60.00
== END ==
LOC: OLABP 10:24
PROVIDERS: ATTENDING PHYSICIAN Family Medicine
DX: G20.A1 Parkinson's disease without dyskinesia, without mention of fluctuations (principal); L03.90 Cellulitis, unspecified; G92.8 Other toxic encephalopathy; J10.1 Influenza due to other identified influenza virus with other respiratory manifestations; E11.9 Type 2 diabetes mellitus without complications; E87.1 Hypo-osmolality and hyponatremia; I48.0 Paroxysmal atrial fibrillation; I10 Essential (primary) hypertension
CPT/HCPCS: 36415; 80048; 85025

== ENCOUNTER 2024-12-20 12:42 | Emergency (ER) | payer OTHER, SELFPAY ==
[2024-12-20 12:46] VITALS: BP 155/71
--- NOTE | 2024-12-20 12:51 | ED.GENMED ---
ED Provider Triage
<Josey Ramirez PA-C - Last Filed: 12/20/24 12:55>
-
Patient seen by provider in Triage?: Seen in Triage
\\79-year-old female with a history of A-fib on Eliquis
History of Parkinson's of the tremor uses a walker at baseline presents after fall where she was reaching to put something in a dresser and did not have her hand on her walker stabilizing her causing her to fall and hit her face on the walker and
then fell to the ground.
She did not lose consciousness, she has a tender lump on her forehead and an abrasion on her right cheek/zygoma/nose
She also says her lower back is sore.
Patient denies nausea vomiting. Tetanus is up-to-date
A medical screening examination has been initiated by a qualified medical provider. Based on the assessment performed at this time, it has been determined that an emergent medical condition may exist and the patient has been informed that further
medical evaluation and possible additional diagnostic testing may be needed.
HPI: This is a medical evaluation conducted in person to initiate diagnostic evaluation and provide initial therapeutics. Please see further documentation by the treating clinician.
GENERAL: Alert , in no apparent distress
Head: Obvious right forehead hematoma with mild tenderness
Face: Right upper cheek abrasion superficial, bruising, nasal abrasion
ENT: No visible abnormalities
LUNGS: No acute respiratory distress
NEUROLOGICAL: Alert and oriented moves extremities, no deficits noticed
SKIN: Skin intact. No visible changes.
MUSCULOSKELETAL: Moving extremities normally
PSYCH: Normal and appropriate interaction.
History of Present Illness
<Josey Ramirez PA-C - Last Filed: 12/20/24 12:55>
General
Chief Complaint: Fall
Time Seen by Provider: 12/20/24 15:30
<Carrie Reed MD - Last Filed: 12/20/24 15:45>
History of Present Illness
History of Present Illness:
Patient is a 79-year-old woman history of A-fib on Elibeverlyis presenting to the emergency room after a fall. She states that she was walking with a walker when she tried to put her glasses back and then fell hitting her head on her walker. She did
not lose consciousness. She states that her forehead and cheek hurt. Initially she was complaining of some lower back pain but states that that has improved since the fall. No numbness tingling. No weakness. Denies any trauma elsewhere.
Past History
<Josey Ramirez PA-C - Last Filed: 12/20/24 12:55>
Past History
ED Past Medical History: Arrthythmia (Atrial fib), CVA, HTN, Hypercholesterolemia, IDDM and Other (Parkinson's disease)
ED Past Surgical History: (X 3), Gynecological (D&C X 3), Orthopedic (partial right knee replacement, Spinal fusion), Tonsilectomy (and adnoids) and Other
Social History
Tobacco: Former smoker
Alcohol: Occasional
Personal:
Living: with family
Employment: Retired
Phy Exam
<Carrie Reed MD - Last Filed: 12/20/24 15:45>
Physical Exam
Physical Exam:
GENERAL: no acute distress
HEENT: Small hematoma to the right side of the forehead, small skin tear to the right as well as the nasal bridge, mild tenderness over the right zygoma, extraocular muscles intact, no septal hematoma
NECK: no midline tenderness
BACK: no midline tenderness, no other obvious trauma
CHEST: no tenderness, no flail segment, no subcutaneous emphysema, no other obvious trauma
LUNGS: clear to auscultation bilaterally
CARDIOVASCULAR: regular rate and rhythm
ABDOMEN: soft, non-tender, no masses, no other obvious trauma
PELVIS: stable, no obvious injury
EXTREMITIES: moving all extremities, distal pulses intact, no other obvious trauma
NEUROLOGIC: awake, alert x 3, no focal deficits
Course
<Josey Ramirez PA-C - Last Filed: 12/20/24 12:55>
Orders/Labs/Results
Orders:
Orders
12/20/24 12:52
CT Facial Bones W/o Iv Contras Urgent
Comment:
Reason For Exam: FALL HIT CHEEK ON ELIQUIS
CT Head W/o Iv Contrast Urgent
Comment:
Reason For Exam: FALL ON ELIQUIS
Vital Signs
Initial and Last Documented VS:
Initial Vital Signs
Temp Pulse Resp BP Pulse Ox
97.7 F 66 18 155/71 98
12/20/24 12:46 12/20/24 12:46 12/20/24 12:46 12/20/24 12:46 12/20/24 12:46
Last Documented Vital Signs
Temp Pulse Resp BP Pulse Ox
97.7 F 70 18 150/70 98
12/20/24 12:46 12/20/24 14:47 12/20/24 12:46 12/20/24 14:47 12/20/24 12:46
<Carrie Reed MD - Last Filed: 12/20/24 15:45>
Orders/Labs/Results
Orders:
Orders
12/20/24 12:[address] Facial Bones W/o Iv Contras Urgent
Comment:
Reason For Exam: FALL HIT CHEEK ON ELIQUIS
CT Head W/o Iv Contrast Urgent
Comment:
Reason For Exam: FALL ON ELIQUIS
Vital Signs
Initial and Last Documented VS:
Initial Vital Signs
Temp Pulse Resp BP Pulse Ox
97.7 F 66 18 155/71 98
12/20/24 12:46 12/20/24 12:46 12/20/24 12:46 12/20/24 12:46 12/20/24 12:46
Last Documented Vital Signs
Temp Pulse Resp BP Pulse Ox
97.7 F 70 18 150/70 98
12/20/24 12:46 12/20/24 14:47 12/20/24 12:46 12/20/24 14:47 12/20/24 12:46
<Carrie Reed MD - Last Filed: 12/20/24 15:45>
MDM/Problems Addressed
Differential Diagnosis Includes:
Patient is a 79-year-old woman with history of A-fib on Eliquis presenting to the emergency department after a mechanical fall with head strike. Vitals unremarkable exam does show small hematoma to the forehead as well as a small skin tear.
Concern for traumatic intracranial injury given the blood thinner. CT scan of the head and facial bones obtained prior to my evaluation. Negative for any acute fractures or bleeding. Regarding patient's low back patient not have any midline
spinal tenderness. Could be muscular strain from the fall. It is reassuring that it has improved. Patient does state that she likely received her tetanus within 5 years. Patient has been ambulatory since the fall. Will discharge at this time
back to senior living.
<Carrie Reed MD - Last Filed: 12/20/24 15:45>
*Critical Care Note
Total Time (30-74mins, 75-104mins- exclusive of procedures): Not Applicable
ED Attending Note
<Josey Ramirez PA-C - Last Filed: 12/20/24 12:55>
-
Portions of this chart may have been created with voice recognition software.� Occasional wrong word or��sound alike� substitutions may have occurred due to the inherent limitations of voice recognition software.
Discharge Plan
Departure
Patient Disposition: Home (Routine Discharge)
Date of Disposition: 12/20/24
Time of Disposition: 15:42
Patient with high blood pressure during this ER visit?: No
Discharge Problem:
Fall
Instructions: Preventing falls in adults
Prescriptions:
No Action
coenzyme Q10 [Co Q-10] 100 mg Capsule
100 mg PO DAILY Qty: 0
rosuvastatin 10 MG tablet
10 mg PO DAILY
rasagiline 1 MG tablet
1 mg PO DAILY
insulin glargine [Lantus Solostar U-100 Insulin] 300 UNITS/3 ML insulin pen
66 units SC DAILY
Eliquis 5 MG tablet
5 mg PO BID
donepezil 10 mg Tablet
10 mg PO HS
irbesartan 150 mg Tablet
150 mg PO DAILY
amlodipine 5 MG tablet
10 mg PO DAILY
carbidopa-levodopa 50-200 mg Tablet Extended Release
1 tab PO DAILY
duloxetine 30 mg Capsule,Delayed Release(Dr/Ec)
30 mg PO DAILY
gabapentin 600 mg tablet
600 mg PO TID
cholecalciferol (vitamin D3) 25 mcg (1,000 unit) Tablet
25 mcg PO DAILY
Trulicity 3 mg/0.5 mL pen injector
3 mg SC WEEKLY
dofetilide 250 MCG capsule
250 mcg PO BID@1000,2200
miconazole nitrate [Miconazorb AF] 2 % Powder
1 applic topical BID Qty: 85 0RF
polyethylene glycol 3350 17 gram Powder In Packet
17 g PO DAILY Qty: 14 0RF
cephalexin 500 mg Capsule
500 mg PO QID Qty: 30 0RF
acetaminophen 325 mg Tablet
650 mg PO Q4HPRN PRN (Reason: headache,mild pain,fever>100.4) Qty: 20 0RF
clonazepam 0.5 mg Tablet
0.5 mg PO HS Qty: 3 0RF
Referrals:
Angela Brian MD [Family Provider] -
Interventions
Interventions:
*Risk Screen - Suicide Last Done: 12/20/24 12:49
*General Assessment Last Done: 12/20/24 15:20
*Neglect/Abuse Screening Last Done: 12/20/24 12:49
*ED COVID-19 Vaccine History Last Done: 12/20/24 15:20
ED-Musculoskeletal Assessment Last Done: 12/20/24 15:20
ED- Neurological Assessment Last Done: 12/20/24 15:20
ED-Skin Assessment Last Done: 12/20/24 15:20
Discharge Date and Time
Print Language: COMORAN
[2024-12-20 14:47] VITALS: BP 150/70
== END 2024-12-20 17:21 | disposition home or self-care (01) ==
LOC: EMR 12:42
PROVIDERS: EMERGENCY PHYSICIAN Student in an Organized Health Care Education/Training Program; FAMILY PHYSICIAN Internal Medicine
DX: S00.83XA Contusion of other part of head, initial encounter (principal); S00.31XA Abrasion of nose, initial encounter; W19.XXXA Unspecified fall, initial encounter; Y93.01 Activity, walking, marching and hiking; I48.91 Unspecified atrial fibrillation; E11.9 Type 2 diabetes mellitus without complications; I10 Essential (primary) hypertension; E78.00 Pure hypercholesterolemia, unspecified; G20.A1 Parkinson's disease without dyskinesia, without mention of fluctuations; Z79.01 Long term (current) use of anticoagulants; Z86.73 Personal history of transient ischemic attack (TIA), and cerebral infarction without residual deficits; Z87.891 Personal history of nicotine dependence; Z96.651 Presence of right artificial knee joint; Z98.1 Arthrodesis status
CPT/HCPCS: 99284; 70450; 70486

== ENCOUNTER 2025-01-02 17:18 | Emergency (ER) | payer OTHER, SELFPAY ==
[2025-01-02 17:23] VITALS: BP 152/73
--- NOTE | 2025-01-02 19:42 | ED.GENMED ---
History of Present Illness
General
Chief Complaint: Head Injury
Time Seen by Provider: 01/02/25 19:42
History of Present Illness
History of Present Illness:
TIME OF INITIAL ENCOUNTER: 8:20 PM
HPI: Patient came in from home after a trip and fall. She struck her head and is on Eliquis. She has a history of Parkinson's. She states that somebody wanted her to 'hurry up' and she slipped on the tile stefanie. She has no lower extremity
complaints.
EXAM:
GENERAL: Well appearing in no distress
CERVICAL SPINE: No midline c-spine tenderness with excellent AROM
HEAD: There is mild tenderness and soft tissue swelling to the right side of the forehead as well as the infraorbital region with mild bony tenderness but no obvious step-off or crepitus, no nasal bone tenderness
CHEST: No chest wall tenderness, normal heart sounds
LUNGS: Equal lung sounds, no respiratory distress
ABDOMEN: No abdominal tenderness, no peritoneal signs
EXTREMITIES: Normal active range of motion, no tenderness
NEURO: Excellent strength all extremities, appropriate mental status, normal speech/language, coarse resting tremor noted to the upper extremities
NUMBER AND COMPLEXITY OF PROBLEMS ADDRESSED AT THE ENCOUNTER
� Chronic conditions affecting care: Parkinson's, A-fib on Eliquis, IDDM
� Acute Exacerbation and/or Progression of Chronic Illness: This is an acute but recurring problem
� Differential Diagnosis includes: Intracranial hemorrhage, minor head injury, contusions
AMOUNT AND/OR COMPLEXITY OF DATA TO BE REVIEWED AND ANALYZED
� I performed an independent evaluation of and my interpretation is:
EKG:
CT: CAT scan of the brain shows soft tissue hematoma right frontal region but no intracranial hemorrhage
X-rays: X-ray of the right elbow shows soft tissue contusion with no evidence of fracture
Laboratory Studies:
Other:
� Review of other/old records: The patient was seen here 2 weeks ago also with a fall and was admitted here about a month ago with cellulitis
� Clinical information was obtained by an independent historian: None needed
� Prescriptions/Medications Considered but not given:
� Further testing considered but not performed:
RISK OF COMPLICATIONS AND/OR MORBIDITY OR MORTALITY OF PATIENT MANAGEMENT
� Social determinants of health affecting care: Lives at home
� Discussion with other providers:
� Escalation of care including admission/observation vs risk of discharge considered: CT brain and elbow x-ray unremarkable. No indication for admission to the hospital. Offered and considered analgesia however the patient
states she will take Tylenol at home.
ANY OTHER UPDATES:
Past History
Past History
ED Past Medical History: Arrthythmia (Atrial fib), CVA, HTN, Hypercholesterolemia, IDDM and Other (Parkinson's disease)
ED Past Surgical History: (X 3), Gynecological (D&C X 3), Orthopedic (partial right knee replacement, Spinal fusion), Tonsilectomy (and adnoids) and Other
Social History
Tobacco: Former smoker
Alcohol: Occasional
Personal:
Living: with family
Employment: Retired
Phy Exam
Physical Exam
Physical Exam:
See HPI
Course
Orders/Labs/Results
Orders:
Orders
01/02/25 17:26
CT Head W/o Iv Contrast Urgent
Comment: fall +eliqus
Reason For Exam: pain
Elbow, Right 3 View [CR Elbow - Right Min 3 Views] Urgent
Comment:
Reason For Exam: fall
Vital Signs
Initial and Last Documented VS:
Initial Vital Signs
Temp Pulse Resp BP Pulse Ox
36.8 C 67 16 152/73 100
01/02/25 17:23 01/02/25 17:23 01/02/25 17:23 01/02/25 17:23 01/02/25 17:23
Last Documented Vital Signs
Temp Pulse Resp BP Pulse Ox
36.8 C 67 16 142/56 99
01/02/25 17:23 01/02/25 17:23 01/02/25 17:23 01/02/25 20:16 01/02/25 20:16
*Critical Care Note
Total Time (30-74mins, 75-104mins- exclusive of procedures): Not Applicable
ED Attending Note
-
Portions of this chart may have been created with voice recognition software.� Occasional wrong word or��sound alike� substitutions may have occurred due to the inherent limitations of voice recognition software.
Discharge Plan
Departure
Patient Disposition: Home (Routine Discharge)
Date of Disposition: 01/02/25
Time of Disposition: :
Patient with high blood pressure during this ER visit?: Yes
Discharge Problem:
Fall, Contusion of face
Instructions: Head Injury in Adults (DC), Contusion (DC), BLOOD PRESSURE
Prescriptions:
No Action
coenzyme Q10 [Co Q-10] 100 mg Capsule
100 mg PO DAILY Qty: 0
rosuvastatin 10 MG tablet
10 mg PO DAILY
rasagiline 1 MG tablet
1 mg PO DAILY
Eliquis 5 MG tablet
5 mg PO BID
donepezil 10 mg Tablet
10 mg PO HS
irbesartan 150 mg Tablet
150 mg PO DAILY
amlodipine 5 MG tablet
10 mg PO DAILY
carbidopa-levodopa 50-200 mg Tablet Extended Release
1 tab PO DAILY
duloxetine 30 mg Capsule,Delayed Release(Dr/Ec)
30 mg PO DAILY
gabapentin 600 mg tablet
600 mg PO TID
cholecalciferol (vitamin D3) 25 mcg (1,000 unit) Tablet
25 mcg PO DAILY
Trulicity 3 mg/0.5 mL pen injector
3 mg SC FR
dofetilide 250 MCG capsule
250 mcg PO BID
polyethylene glycol 3350 17 gram Powder In Packet
17 g PO DAILY Qty: 14 0RF
acetaminophen 325 mg Tablet
650 mg PO Q4HPRN PRN (Reason: headache,mild pain,fever>100.4) Qty: 20 0RF
clonazepam 0.5 mg Tablet
0.5 mg PO HS Qty: 3 0RF
magnesium hydroxide [Milk of Magnesia] 400 mg/5 mL Suspension
2,400 mg PO DAILYPRN PRN (Reason: if no bm by 4th day )
bisacodyl [Dulcolax (bisacodyl)] 10 mg Suppository
10 mg SD DAILYPRN PRN (Reason: if no bm by day 5)
Fleet Enema 19-7 gram/118 mL Enema
118 ml SD DAILYPRN PRN (Reason: if no bm by 6th day)
insulin aspart U-100 [Novolog FlexPen U-100 Insulin] 100 unit/mL (3 mL) Insulin Pen
1 sliding scale dose SC ACHS
insulin glargine-yfgn 100 unit/mL Solution
66 unit SC DAILY
miconazole nitrate [Miconazorb AF] 2 % powder
1 applic topical BID
Activity Restrictions/Additional Instructions:
The CAT scan of the brain shows no internal bleeding around the brain and the x-ray of the elbow shows no sign of fracture. Tylenol would be safest for pain.
Interventions
Interventions:
*Risk Screen - Suicide Last Done: 01/02/25 17:23
*General Assessment Last Done: 01/02/25 20:16
*Neglect/Abuse Screening Last Done: 01/02/25 17:23
*ED- Fall Risk Assessment Last Done: 01/02/25 20:16
*ED COVID-19 Vaccine History Last Done: 01/02/25 20:16
ED- Neurological Assessment Last Done: 01/02/25 20:16
ED-Skin Assessment Last Done: 01/02/25 20:16
Discharge Date and Time
Print Language: EMIRATI
[2025-01-02 20:16] VITALS: BP 142/56; BMI 35.3
[2025-01-02 21:00] VITALS: BP 126/98
== END 2025-01-02 22:21 | disposition home or self-care (01) ==
LOC: EMR 17:18
PROVIDERS: EMERGENCY PHYSICIAN Emergency Medicine
DX: S00.83XA Contusion of other part of head, initial encounter (principal); W01.0XXA Fall on same level from slipping, tripping and stumbling without subsequent striking against object, initial encounter; G20.A1 Parkinson's disease without dyskinesia, without mention of fluctuations; I48.91 Unspecified atrial fibrillation; I10 Essential (primary) hypertension; E78.00 Pure hypercholesterolemia, unspecified; E11.9 Type 2 diabetes mellitus without complications; Z79.01 Long term (current) use of anticoagulants; Z86.73 Personal history of transient ischemic attack (TIA), and cerebral infarction without residual deficits; Z87.891 Personal history of nicotine dependence; Z96.651 Presence of right artificial knee joint; Z98.1 Arthrodesis status
CPT/HCPCS: 99284; 70450; 73080

== ENCOUNTER → 2025-02-08 10:33 | Outpatient (REF) | payer OTHER, SELFPAY | LOC: RAD 10:33 | PROVIDERS: ATTENDING PHYSICIAN Nurse Practitioner; FAMILY PHYSICIAN Internal Medicine | DX: N39.0 Urinary tract infection, site not specified (principal) | CPT/HCPCS: 76770; 76856 ==

== ENCOUNTER → 2025-02-11 12:23 | Outpatient (REF) | payer OTHER, SELFPAY | LOC: WOUND 12:23 | PROVIDERS: ATTENDING PHYSICIAN Surgery; FAMILY PHYSICIAN Internal Medicine | DX: S51.001A Unspecified open wound of right elbow, initial encounter (principal); E11.22 Type 2 diabetes mellitus with diabetic chronic kidney disease; F02.80 Dementia in other diseases classified elsewhere, unspecified severity, without behavioral disturbance, psychotic disturbance, mood disturbance, and anxiety; G20.A1 Parkinson's disease without dyskinesia, without mention of fluctuations; E11.21 Type 2 diabetes mellitus with diabetic nephropathy; G31.83 Neurocognitive disorder with Lewy bodies; N18.31 Chronic kidney disease, stage 3a | CPT/HCPCS: 11042; 99214 ==

== ENCOUNTER → 2025-02-18 13:35 | Outpatient (REF) | payer OTHER, SELFPAY | LOC: WOUND 13:35 | PROVIDERS: ATTENDING PHYSICIAN Surgery; FAMILY PHYSICIAN Internal Medicine | DX: E11.22 Type 2 diabetes mellitus with diabetic chronic kidney disease (principal); F02.80 Dementia in other diseases classified elsewhere, unspecified severity, without behavioral disturbance, psychotic disturbance, mood disturbance, and anxiety; E11.21 Type 2 diabetes mellitus with diabetic nephropathy; G31.83 Neurocognitive disorder with Lewy bodies; N18.31 Chronic kidney disease, stage 3a; Z79.4 Long term (current) use of insulin; Z91.81 History of falling; X58.XXXA Exposure to other specified factors, initial encounter | CPT/HCPCS: 11042 ==

== ENCOUNTER → 2025-02-18 14:19 | Outpatient (REF) | payer OTHER, SELFPAY | LOC: RAD 14:19 | PROVIDERS: ATTENDING PHYSICIAN Surgery; FAMILY PHYSICIAN Internal Medicine | DX: S51.001A Unspecified open wound of right elbow, initial encounter (principal) | CPT/HCPCS: 73080 ==

== ENCOUNTER → 2025-02-28 10:37 | Outpatient (REF) | payer OTHER, SELFPAY | LOC: WOUND 10:37 | PROVIDERS: ATTENDING PHYSICIAN Surgery | DX: S51.001A Unspecified open wound of right elbow, initial encounter (principal); E11.22 Type 2 diabetes mellitus with diabetic chronic kidney disease; Z79.4 Long term (current) use of insulin; Z91.81 History of falling; G20.C Parkinsonism, unspecified; F02.80 Dementia in other diseases classified elsewhere, unspecified severity, without behavioral disturbance, psychotic disturbance, mood disturbance, and anxiety; E11.21 Type 2 diabetes mellitus with diabetic nephropathy; G31.83 Neurocognitive disorder with Lewy bodies; N18.31 Chronic kidney disease, stage 3a; X58.XXXA Exposure to other specified factors, initial encounter | CPT/HCPCS: 99213 ==

== ENCOUNTER → 2025-03-07 09:09 | Outpatient (REF) | payer OTHER, SELFPAY | LOC: WOUND 09:09 | PROVIDERS: ATTENDING PHYSICIAN Surgery | DX: S51.001A Unspecified open wound of right elbow, initial encounter (principal); E11.22 Type 2 diabetes mellitus with diabetic chronic kidney disease; Z79.4 Long term (current) use of insulin; Z91.81 History of falling; F02.80 Dementia in other diseases classified elsewhere, unspecified severity, without behavioral disturbance, psychotic disturbance, mood disturbance, and anxiety; E11.21 Type 2 diabetes mellitus with diabetic nephropathy; G31.83 Neurocognitive disorder with Lewy bodies; N18.31 Chronic kidney disease, stage 3a; W19.XXXA Unspecified fall, initial encounter | CPT/HCPCS: 99212 ==

== ENCOUNTER 2025-03-27 22:10 | Emergency (ER) | payer OTHER, SELFPAY ==
[2025-03-27 22:12] VITALS: BP 179/86
[2025-03-27 23:39] VITALS: BP 157/127
[2025-03-28] VITALS (12 sets, daily range): BP systolic 99–183; BP diastolic 59–88; BMI 35.5
[2025-03-28 01:08] LABS: % Basophils 0.6 % (0-2); % Eosinophils 2.1 % (0-6); % Immature Granulocytes 0.3 % (0-0.5); % Lymphocytes 24.7 % (20.5-51.1); % Monocytes 11.5 % (1.7-9.3); % Neutrophils 60.8 % (42.2-75.2); Absolute Basophils 0.1 10^3/uL (0-0.2); Absolute Eosinophils 0.2 10^3/uL (0-0.7); Absolute Lymphocytes 2.4 10^3/uL (1.2-3.4); Absolute Monocytes 1.1 10^3/uL (0.1-0.6); Absolute Neutrophils 5.8 10^3/uL (1.4-6.5); Hematocrit 37.5 % (37.0-47.0); Hemoglobin 12.9 g/dL (12.0-16.0); Mean Corp Hgb Conc. 34.4 g/dL (33.0-37.0); Mean Corpuscular Hgb 31.4 pg (27.0-31.0); Mean Corpuscular Volume 91.2 fL (81.0-99.0); Mean Platelet Volume 11.3 fL (7.4-10.4); Nucleated Red Blood Cells % 0 %; Platelet Count 206 10^3/uL (130-400); Red Blood Cell Count 4.11 10^6/uL (4.20-5.40); Red Cell Dist. Width 13.1 % (11.5-14.5); White Blood Cell Count 9.6 10^3/uL (4.8-10.8)
[2025-03-28 01:23] LABS: INR 1.26; PT 16.3 Sec (11.4-14.6)
[2025-03-28 01:26] LABS: Blood Urea Nitrogen 28 mg/dl (7-17); Carbon Dioxide 26 mmol/L (22-30); Chloride 109 mmol/L (98-107); Estimated Creatinine Clearance 42 ml/min; Glucose 115 mg/dl (70-99); Potassium 4.5 mmol/L (3.5-5.1); Sodium 142 mmol/L (135-145); eGFR 45.48
--- NOTE | 2025-03-28 02:05 | ED.GENMED ---
History of Present Illness
General
Chief Complaint: Overdose Unintentional
Source: patient, family ( Daughter who is at bedside) and previous hospital records (ED visits November as well as December of this year after suffering mechanical falls. Hospitalization November of this year for treatment of cellulitis.)
Exam Limitations: none
Time Seen by Provider: 03/28/25 00:47
Nursing documentation reviewed up to this point in time: agreed with
History of Present Illness
History of Present Illness:
This is an 79-year-old woman who resides at home with her . She has history of Parkinson's disease, insulin-dependent diabetes, A-fib chronically maintained on Eliquis as well as Tikosyn, mild dementia.
Maintained on multiple medications which are prepackaged for a.m. and p.m. dosing.
She took her usual evening dose of medications at 8 PM and then, due to urging by her to make sure she took her medication she inadvertently also took tomorrow morning's packet of medications. Along with this she took 2 doses of Macrobid
which were prescribed yesterday, 3-day course in preparation for visit with urologist for evaluation of chronic urinary frequency.
Upon discovering that she took mornings medications along with her Tuesday nighttime medications, daughter called poison control and was recommended to come to the ED. Most concerned regarding extra dose of Tikosyn 250 mcg which she is
prescribed twice daily.
She did not take extra dose of insulin.
Patient overall feeling well, she denies dizziness nor lightheadedness, no chest pain or palpitations, no abdominal pain, no nausea nor vomiting.
She is accompanied by her daughter.
Her evening medications include: Dofetilide 250 mcg, Eliquis 5 mg, gabapentin 600 mg, Sinemet 25 mg, rosuvastatin 20 mg, donepezil, 10 mg
Her morning medications include dofetilide 250 mcg, coenzyme Q 10, duloxetine 30 mg, Eliquis 5 mg, irbesartan 150 mg, vitamin D3, Sinemet 50 mg, Sinemet 25 mg, gabapentin 600 mg, rasagiline 1 mg.
She took all of these medications inadvertently at 8 PM tonight.
Past History
Past History
ED Past Medical History: Arrthythmia (Atrial fib), CVA, HTN, Hypercholesterolemia, IDDM and Other (Parkinson's disease, mild dementia)
ED Past Surgical History: (X 3), Gynecological (D&C X 3), Orthopedic (partial right knee replacement, Spinal fusion), Tonsilectomy (and adnoids) and Other
Social History
Tobacco: Former smoker
Alcohol: Occasional
Personal:
Living: with family
Employment: Retired
Family History
Family History: Other (Noncontributory)
Phy Exam
Physical Exam
Physical Exam:
GENERAL: 79-year-old woman appears her stated age, bright and alert, pleasant, easily communicative and in no acute distress. Daughter is accompanying.
EYE: pupils equal and reactive. anicteric
NECK: Supple, nontender, no meningismus, no significant adenopathy.
ENT: posterior pharynx is clear, oral mucosa is moist. No rhinorrhea.
CARDIAC: Regular rate and rhythm. no murmur.
LUNGS: Clear breath sounds bilaterally, no acute respiratory distress, no wheezes/rales/rhonchi
ABDOMEN: Soft, nondistended, without focal tenderness
NEUROLOGICAL: Alert and oriented x3, mild to moderate akathisia of upper extremities with both patient and daughter state is chronic and unchanged.
SKIN: Warm and dry, normal color, skin intact. No rash.
MUSCULOSKELETAL: No C/C/E. peripheral pulses are full and equal b/l. No palpable tenderness.
PSYCH: Normal and appropriate interaction.
Course
Orders/Labs/Results
Orders:
Orders
03/28/25 00:01
EKG [Electrocardiogram (*1)] Urgent
Reason for Study: Palpitations
03/28/25 00:02
EKG- Treatment ONCE
03/28/25 00:45
CBC/With Diff [Complete Blood Count/With Diff] Urgent
PT/INR [Prothrombin Time] Urgent
03/28/25 00:49
BMP [Basic Metabolic Panel] Urgent
03/28/25 00:51
Cardiac Monitoring- Treatment ONCE
03/28/25 02:14
0.9% Sodium Chloride 1000 ml [Nss] 1,000 ml IV 250 mls/hr
03/28/25 03:51
Electrocardiogram (*1) Urgent
Reason for Study: QTc Monitoring
EKG- Treatment ONCE
Abnormal Lab Results
03/28/25 03/28/25
00:45 00:49
RBC 4.11 L 10^6/uL
(4.20-5.40)
MCH 31.4 H pg
(27.0-31.0)
MPV 11.3 H fL
(7.4-10.4)
Absolute Monos (auto) 1.1 H 10^3/uL
(0.1-0.6)
Monocytes % 11.5 H %
(1.7-9.3)
PT 16.3 H Sec
(11.4-14.6)
Chloride 109 H mmol/L
(98-107)
BUN 28 H mg/dl
(7-17)
Creatinine 1.2 H mg/dL
(0.6-1.0)
Glucose 115 H mg/dl
(70-99)
03/28/25 00:45
03/28/25 00:49
Vital Signs
Initial and Last Documented VS:
Initial Vital Signs
Temp Pulse Resp BP Pulse Ox
98.5 F 67 16 179/86 99
03/27/25 22:12 03/27/25 22:12 03/27/25 22:12 03/27/25 22:12 03/27/25 22:12
Last Documented Vital Signs
Temp Pulse Resp BP Pulse Ox
98.5 F 68 24 157/59 96
03/27/25 22:12 03/28/25 05:15 03/28/25 05:15 03/28/25 05:00 03/28/25 05:15
MDM/Problems Addressed
Differential Diagnosis Includes:
Concern for QT prolongation, concern for hypotension, concern for potential worsening of Parkinson's disease, concern for oversedation due to inadvertent medication overdose.
She remains hemodynamically stable and asymptomatic.
EKG shows normal sinus rhythm, QTc 460 ms, similar and unchanged from previous EKG November 2024.
Case discussed with poison control, recommend monitoring for 8 hours post ingestion which was reportedly 8 PM.
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
Routine labs are pending.
Chronic conditions affecting care: DM, HTN, Arrhythmia and Neurological disorder
*Pulse Oximetry
Patient hypoxic: no
*EKG
Interpreted by ED Provider?: Yes
Comparison EKG: no changes
Rate: normal
Rhythm: sinus
[place]: normal axis
Interval: normal QT interval
QRS Pattern: normal QRS
Ischemia: no ischemia
*Residential Manager Interpretation
Rate: normal
Interpretation: normal
Rhythm: sinus
*Critical Care Note
Total Time (30-74mins, 75-104mins- exclusive of procedures): Not Applicable
Update Note
Update Note:
06:15
Patient remains hemodynamically stable.
EKG unchanged from previous.
Will discharge to home with recommendations to hold her a.m. medications as she took these last night and to resume her regular medications this evening.
Prompt follow-up with PCP for recheck.
ED Attending Note
-
Portions of this chart may have been created with voice recognition software.� Occasional wrong word or��sound alike� substitutions may have occurred due to the inherent limitations of voice recognition software.
Discharge Plan
Departure
Patient Disposition: Home (Routine Discharge)
Date of Disposition: 03/28/25
Time of Disposition: 06:21
Patient with high blood pressure during this ER visit?: No
Condition: Good
Discharge Problem:
Accidental medication overdose
Instructions: Accidental Overdose (DC), Medication safety
Prescriptions:
No Action
coenzyme Q10 [Co Q-10] 100 mg Capsule
100 mg PO DAILY Qty: 0
rosuvastatin 10 MG tablet
10 mg PO DAILY
rasagiline 1 MG tablet
1 mg PO DAILY
Eliquis 5 MG tablet
5 mg PO BID
donepezil 10 mg Tablet
10 mg PO HS
irbesartan 150 mg Tablet
150 mg PO DAILY
amlodipine 5 MG tablet
10 mg PO DAILY
carbidopa-levodopa 50-200 mg Tablet Extended Release
1 tab PO DAILY
duloxetine 30 mg Capsule,Delayed Release(Dr/Ec)
30 mg PO DAILY
gabapentin 600 mg tablet
600 mg PO TID
cholecalciferol (vitamin D3) 25 mcg (1,000 unit) Tablet
25 mcg PO DAILY
Trulicity 3 mg/0.5 mL pen injector
3 mg SC FR
dofetilide 250 MCG capsule
250 mcg PO BID
polyethylene glycol 3350 17 gram Powder In Packet
17 g PO DAILY Qty: 14 0RF
acetaminophen 325 mg Tablet
650 mg PO Q4HPRN PRN (Reason: headache,mild pain,fever>100.4) Qty: 20 0RF
clonazepam 0.5 mg Tablet
0.5 mg PO HS Qty: 3 0RF
magnesium hydroxide [Milk of Magnesia] 400 mg/5 mL Suspension
2,400 mg PO DAILYPRN PRN (Reason: if no bm by 4th day )
bisacodyl [Dulcolax (bisacodyl)] 10 mg Suppository
10 mg CO DAILYPRN PRN (Reason: if no bm by day 5)
Fleet Enema 19-7 gram/118 mL Enema
118 ml CO DAILYPRN PRN (Reason: if no bm by 6th day)
insulin aspart U-100 [Novolog FlexPen U-100 Insulin] 100 unit/mL (3 mL) Insulin Pen
1 sliding scale dose SC ACHS
insulin glargine-yfgn 100 unit/mL Solution
66 unit SC DAILY
miconazole nitrate [Miconazorb AF] 2 % powder
1 applic topical BID
Referrals:
Angela Brian MD [Family Provider, Internal Medicine] - Call in 1-3 days for appt
Interventions
Interventions:
*Risk Screen - Suicide Last Done: 03/27/25 22:12
*Neglect/Abuse Screening Last Done: 03/27/25 22:12
ED- Cardiac Assessment Last Done: 03/28/25 00:00
ED- Neurological Assessment Last Done: 03/28/25 00:00
ED-Psychological Assessment Last Done: 03/28/25 00:00
ED- Pulmonary Assessment Last Done: 03/28/25 00:00
Discharge Date and Time
Print Language: HUNGARIAN
[2025-03-28] MEDS: NSS 1000 IV (02:54)
[2025-03-29 09:59] LABS: Glucose - Point of Care 78 mg/dl (70-99)
== END 2025-03-28 08:10 | disposition home or self-care (01) ==
LOC: EMR 22:10
PROVIDERS: EMERGENCY PHYSICIAN Emergency Medicine; FAMILY PHYSICIAN Internal Medicine
DX: T50.901A Poisoning by unspecified drugs, medicaments and biological substances, accidental (unintentional), initial encounter (principal); Y92.9 Unspecified place or not applicable; I48.91 Unspecified atrial fibrillation; I10 Essential (primary) hypertension; E78.00 Pure hypercholesterolemia, unspecified; E11.9 Type 2 diabetes mellitus without complications; G20.A1 Parkinson's disease without dyskinesia, without mention of fluctuations; F02.A0 Dementia in other diseases classified elsewhere, mild, without behavioral disturbance, psychotic disturbance, mood disturbance, and anxiety; Z79.01 Long term (current) use of anticoagulants; Z86.73 Personal history of transient ischemic attack (TIA), and cerebral infarction without residual deficits; Z87.891 Personal history of nicotine dependence; Z96.651 Presence of right artificial knee joint; Z98.1 Arthrodesis status
CPT/HCPCS: 99283; 80048; 85025; 85610; 93005

== ENCOUNTER → 2025-07-18 15:59 | Outpatient (REF) | payer OTHER, SELFPAY | LOC: RCS 15:59 | PROVIDERS: ATTENDING PHYSICIAN Internal Medicine Cardiovascular Disease; FAMILY PHYSICIAN Internal Medicine | DX: I48.19 Other persistent atrial fibrillation (principal) | CPT/HCPCS: 93306 ==